=== PATIENT | male | born 1965 | race Caucasian/White ===

== ENCOUNTER → 2016-07-06 | Outpatient (CLI) | payer OTHER | LOC: OD 11:51 | DX: M54.2 Cervicalgia (principal); M47.892 Other spondylosis, cervical region | CPT/HCPCS: 72050 ==

== ENCOUNTER 2016-08-31 05:10 | Inpatient (IN) | payer OTHER ==
[2016-08-31 07:18] LABS: APPEARANCE,URINE CLEAR; BILIRUBIN,URINE NEGATIVE (NEGATIVE); GLUCOSE, URINE NEGATIVE (NEGATIVE); KETONES,URINE NEGATIVE (NEGATIVE); LEUKOCYTE ESTERASE,URINE NEGATIVE (NEGATIVE); NITRITE,URINE NEGATIVE (NEGATIVE); PROTEIN,URINE NEGATIVE (NEGATIVE); URINE SPECIFIC GRAVITY 1.002; UROBILINOGEN,URINE NEGATIVE mg/dL (<2.0)
[2016-08-31] MEDS ORDERED: HYDROMORPHONE HCL INJ/PF 2 MG/ML AMPULE IV ONE (07:42)
[2016-08-31] MEDS ORDERED: ONDANSETRON HCL INJ/PF 4 MG/2 ML SDV IV ONE (07:42)
--- NOTE | 2016-08-31 07:42 | ER Document Report ---
ED GI/ - General Mode of Arrival: Ambulatory Information source: Patient TRAVEL OUTSIDE OF THE [place] IN LAST 30 DAYS: No - HPI Patient complains to provider of: Abdominal pain Onset: Other - see narrative <MARISA LEE - Last Filed: 08/31/16 07:46> <PENNY BHATTI - Last Filed: 08/31/16 12:14> - General Chief Complaint: Abdominal Pain Stated Complaint: ABDOMINAL PAIN/DIZZY Time Seen by Provider: 08/31/16 07:22 Notes: Patient is a 51-year-old male that presents to the emergency department today with complaints of abdominal pain for the last 2-3 weeks. Patient states the pain is constant and that it "just stays there". Patient states there is no change in his pain with food. Patient states he has been dizzy for a couple of days, has been vomiting for 1 week, and has had diarrhea for the duration of this abdominal pain. Patient states the pain is located at the bottom of his stomach. Patient complains of subjective fevers, stating his temperature was in the "99's" at home. Patient does admit to daily alcohol usage, stating he drinks 2-3 40 ounce malt beverages daily. Patient denies seeing any blood in his feces or vomit. Patient is not on any blood thinning medications. (MARISA LEE) - Related Data Allergies/Adverse Reactions: No Known Allergies Allergy (Verified 07/27/14 00:20) Past Medical History - General Information source: Patient, [facility] Records - Social History Smoking Status: Never Smoker Cigarette use (# per day): No Frequency of alcohol use: daily, 2-3 40 oz. beers a day Drug Abuse: None Lives with: Family Family History: Reviewed & Not Pertinent Patient has suicidal ideation: No Patient has homicidal ideation: No - Past Medical History Cardiac Medical History: Reports: Hx Heart Attack, Hx Hypercholesterolemia, Hx Hypertension Neurological Medical History: Reports: Hx Seizures GI Medical History: Reports: Hx Gastroesophageal Reflux Disease Past Surgical History: Reports: Hx Abdominal Surgery - Immunizations Immunizations up to date: Yes Hx Diphtheria, Pertussis, Tetanus Vaccination: Yes <MARISA LEE - Last Filed: 08/31/16 07:46> Review of Systems - Review of Systems Constitutional: See HPI, Fever - subjective, "in the 99's at home" EENT: No symptoms reported Cardiovascular: See HPI, Dizziness Respiratory: No symptoms reported Gastrointestinal: See HPI, Abdominal pain, Diarrhea, Nausea, Vomiting. denies: Blood in vomit, Rectal bleeding Genitourinary: No symptoms reported Male Genitourinary: No symptoms reported Musculoskeletal: No symptoms reported Skin: No symptoms reported Hematologic/Lymphatic: No symptoms reported Neurological/Psychological: No symptoms reported -: Yes All other systems reviewed and negative <MARISA LEE - Last Filed: 08/31/16 07:46> Physical Exam <MARISA LEE - Last Filed: 08/31/16 07:46> <PENNY BHATTI - Last Filed: 08/31/16 12:14> - Vital signs Vitals: Temp Pulse Resp BP Pulse Ox 97.4 F 81 16 133/92 H 97 08/31/16 05:16 08/31/16 05:16 08/31/16 05:16 08/31/16 05:16 08/31/16 05:16 - Notes Notes: PHYSICAL EXAM GENERAL: Alert, interacts well. No acute distress. HEAD: Normocephalic, atraumatic. EYES: Pupils equal, round, and reactive to light. Extraocular movements intact. ENT: Oral mucosa moist, tongue midline. NECK: Full range of motion. Supple. Trachea midline. LUNGS: Clear to auscultation bilaterally, no wheezes, rales, or rhonchi. No respiratory distress. HEART: Regular rate and rhythm. No murmurs, gallops, or rubs. ABDOMEN: Soft, diffuse mild abdominal tenderness with palpation. No guarding, rebound, rigidity, or palpable masses. Non-distended. Bowel sounds present in all 4 quadrants. EXTREMITIES: Moves all 4 extremities spontaneously. No edema. No cyanosis. NEUROLOGICAL: Alert and oriented x3. Normal speech. PSYCH: Normal affect, normal mood. SKIN: Warm, dry, normal turgor. No rashes or lesions noted. (MARISA LEE) Course - Laboratory Result Diagrams: 08/31/16 07:36 08/31/16 07:36 <MARISA LEE - Last Filed: 08/31/16 07:46> - Laboratory Result Diagrams: 08/31/16 07:36 08/31/16 07:36 <PENNY BHATTI - Last Filed: 08/31/16 12:14> - Re-evaluation Re-evalutation: 08/31/16 11:57 Shows mild anemia with hemoglobin 12.1, chemistries show markedly sodium of 121.2 which could certainly account for the dizziness and the vomiting and diarrhea but could also have been caused by vomiting and diarrhea or beer potomania. Is correspondingly low, urinalysis unremarkable, serum alcohol was 285. CT scan of the abdomen and pelvis shows small hiatal hernia and cholelithiasis without any signs of acute obstruction or infection. Discussed patient with Dr. Rhoades the hospitalist on-call who agrees to admit the patient to his service for symptomatic hyponatremia. (PENNY BHATTI) - Vital Signs Vital signs: Temp Pulse Resp BP Pulse Ox 98.2 F 69 16 133/92 H 100 08/31/16 10:23 08/31/16 10:23 08/31/16 10:23 08/31/16 05:16 08/31/16 10:23 - Laboratory Laboratory results interpreted by me: 08/31/16 08/31/16 07:36 07:36 RBC 4.13 L Hgb 12.9 L Hct 37.1 L Sodium 121.2 L Chloride 80 L BUN 5 L Direct Bilirubin 0.6 H AST 76 H Total Protein 8.3 H Discharge <MARISA LEE - Last Filed: 08/31/16 07:46> - Discharge Admitting Provider: Hospitalist - Dr. Rhoades Unit Admitted: Telemetry <PENNY BHATTI - Last Filed: 08/31/16 12:14> - Discharge Clinical Impression: Hyponatremia, Nausea vomiting and diarrhea, Dizziness Condition: Fair Disposition: ADMITTED INPATIENT Scribe Attestation: 08/31/16 12:13 I personally performed the services described in the documentation, reviewed and edited the documentation which was dictated to the scribe in my presence, and it accurately records my words and actions. (PENNY BHATTI) Scribe Documentation - Scribe Written by Ashley:: Ashley Gonzales, 08/31/2016 [id number] acting as scribe for :: Jaz <MARISA LEE - Last Filed: 08/31/16 07:46>
[2016-08-31 07:52] LABS: ABSOLUTE BASOPHILS # (AUTO) 0.1 10^3/uL (0.0-0.2); ABSOLUTE EOSINOPHILS # (AUTO) 0.1 10^3/uL (0.0-0.6); ABSOLUTE LYMPHOCYTES (AUTO) 2.4 10^3/uL (0.5-4.7); ABSOLUTE NEUT (AUTO) 5.4 10^3/uL (1.7-8.2); EOSINOPHILS % (AUTO) 0.7 % (0-6); HEMATOCRIT 37.1 % (37.9-51.0); HEMOGLOBIN 12.9 g/dL (13.5-17.0); HGB HCT DIFFERENCE 1.6; LYMPHOCYTES % (AUTO) 26.4 % (13-45); MEAN CORPUSCULAR HEMOGLOBIN 31.4 pg (27.0-33.4); MEAN CORPUSCULAR HGB CONC 34.8 g/dL (32.0-36.0); MEAN CORPUSCULAR VOLUME 90 fl (80-97); RED BLOOD COUNT 4.13 10^6/uL (4.35-5.55); RED CELL DISTRIBUTION WIDTH 13.2 % (11.5-14.0); SEGMENTED NEUTROPHILS % (AUTO) 60.9 % (42-78)
[2016-08-31 08:09] LABS: ALANINE AMINOTRANSFERASE 40 U/L (21-72); ALBUMIN 4.6 g/dL (3.5-5.0); ALCOHOL 285 mg/dL (NONE DETECTED); ALKALINE PHOSPHATASE 64 U/L (38-126); ANION GAP 14 (5-19); ASPARTATE AMINO TRANSFERASE 76 U/L (17-59); BILIRUBIN,DIRECT 0.6 mg/dL (0.0-0.4); BILIRUBIN,TOTAL 0.8 mg/dL (0.2-1.3); BLOOD UREA NITROGEN 5 mg/dL (7-20); CALCIUM 9.1 mg/dL (8.4-10.2); CARBON DIOXIDE 27 mmol/L (22-30); CHLORIDE 80 mmol/L (98-107); CREATININE RESULT 0.78 mg/dL (0.52-1.25); GLUCOSE 100 mg/dL (75-110); POTASSIUM 4.2 mmol/L (3.6-5.0); SODIUM 121.2 mmol/L (137-145); TOTAL PROTEIN 8.3 g/dL (6.3-8.2)
--- NOTE | 2016-08-31 11:00 | RADIOLOGY REPORT (SQ) ---
EXAM DESCRIPTION: CT ABD/PELVIS WITH IV ORAL COMPLETED DATE/TIME: 08/31/2016 10:36 am REASON FOR STUDY: B/L lower abd pain COMPARISON: None. TECHNIQUE: CT scan of the abdomen and pelvis performed using helical scanning technique with dynamic intravenous contrast injection. Oral contrast. Images reviewed with lung, soft tissue, and bone win dows. Reconstructed coronal and sagittal MPR images reviewed. Delayed images for evaluation of the ur inary system also acquired. All images stored on PACS. All CT scanners at this facility use dose modulation, iterative reconstruction, and/or weight based d osing when appropriate to reduce radiation dose to as low as reasonably achievable (ALARA). [facility]: Dose Right [facility]: CareDose [facility]: Dose Right [facility]: Teradose 4D [facility]: WinWeb CONTRAST TYPE AND DOSE: 62mL Isovue 370- low osmolar. RENAL FUNCTION: BUN 5 creatinine 0.8 RADIATION DOSE: 11.52mGy. LIMITATIONS: None. FINDINGS: LOWER CHEST: There is mild subsegmental atelectasis in the right lower lobe. There is a s mall hiatal hernia. LIVER: Normal size. No masses or dilated ducts. SPLEEN: Normal size. No focal lesions. PANCREAS: No masses. No significant calcifications. No adjacent inflammation or peripancreatic fluid collections. Pancreatic duct not dilated. GALLBLADDER: Several small gallstones are present. There is no ductal dilatation. ADRENAL GLANDS: No significant masses or asymmetry. RIGHT KIDNEY AND URETER: No solid masses. No significant calcifications. No hydronephrosis or hyd roureter. LEFT KIDNEY AND URETER: No solid masses. No significant calcifications. No hydronephrosis or hydr oureter. AORTA AND VESSELS: No aneurysm. No dissection. Renal arteries, SMA, celiac without stenosis. RETROPERITONEUM: No retroperitoneal adenopathy, hemorrhage or masses. BOWEL AND PERITONEAL CAVITY: No masses or inflammatory changes. No free fluid or peritoneal masses. APPENDIX: Normal. PELVIS: The bladder is normal. Prostate gland and seminal vesicles are normal. ABDOMINAL WALL: No masses. No hernias. BONES: There is mild disc space narrowing at L1-2 and at L4-5. OTHER: No other significant finding. IMPRESSION: 1. Small hiatal hernia. 2. Cholelithiasis. 3. Mild degenerative disc changes in the lumbar spine. TECHNICAL DOCUMENTATION: JOB ID: [id number] Quality ID # [id number]: Final reports with documentation of one or more dose reduction techniques (e.g., Au tomated exposure control, adjustment of the mA and/or kV according to patient size, use of iterative reconstruction technique) 2010 [employer]- All Rights Reserved
[2016-08-31] MEDS ORDERED: ONDANSETRON HCL INJ/PF 4 MG/2 ML SDV IV PRN (13:56)
[2016-08-31] MEDS ORDERED: NORMAL SALINE 1000 ML 1,000 ML IV PRN (13:56)
[2016-08-31] MEDS ORDERED: ACETAMINOPHEN 325 MG TABLET PO PRN (13:56)
[2016-08-31] MEDS ORDERED: LORAZEPAM INJ 2 MG/1 ML VIAL IV PRN (14:03)
--- NOTE | 2016-08-31 14:16 | PDOC H&P ---
History of Present Illness Admission Date/PCP: 08/31/16 12:17 Patient complains of: Abdominal pain nausea and vomiting History of Present Illness: ROSAMARIA JAMES is a 51 year old male, with history of alcohol abuse hypertension hyperlipidemia and gastroesophageal reflux disease has been dealing with nausea vomiting and abdominal pain for 2 weeks. For the past 2-3 days he started to feel dizzy and unable to eat. Patient progressively got weak and presented to the emergency room for evaluation. No one sick with diarrhea at home. No exposure to person with diarrhea. No recent antibiotic intake. The diarrhea is occurring 10-12 times per day and is mainly watery. No melena hematochezia or hematemesis. No recent travel. There is a subjective fever but no sweating. Abdominal pain is characterized as crampy and generalized. He has no particular relation to food intake. In the emergency room serum sodium was found to be low at 121 therefore she was referred for admission. Past Medical History Cardiac Medical History: Reports: Myocardial Infarction, Hyperlipidema, Hypertension Neurological Medical History: Reports: Seizures GI Medical History: Reports: Gastroesophageal Reflux Disease Past Surgical History Past Surgical History: Reports: Other - Abdominal surgery in the past Social History Information Source: Patient Lives with: Family Smoking Status: Never Smoker Frequency of Alcohol Use: Heavy Hx Recreational Drug Use: No Drugs: None Family History Family History: Other - Heart disease and stroke Parental Family History Reviewed: Yes Children Family History Reviewed: Yes Sibling(s) Family History Reviewed.: Yes Medication/Allergy Allergies/Adverse Reactions: No Known Allergies Allergy (Verified 07/27/14 00:20) Review of Systems Constitutional: PRESENT: fever(s) - Subjective fever at home, headache(s) - Mild earlier. ABSENT: chills, night sweats, weight gain, weight loss Eyes: ABSENT: visual disturbances Ears: ABSENT: hearing changes Nose, Mouth, and Throat: ABSENT: mouth pain, sore throat Cardiovascular: ABSENT: chest pain, dyspnea on exertion, edema, orthropnea, palpitations Respiratory: ABSENT: cough, dyspnea, hemoptysis Gastrointestinal: PRESENT: abdominal pain, diarrhea, nausea, vomiting. ABSENT: constipation, hematemesis, hematochezia, melena Genitourinary: ABSENT: difficulty urinating, dysuria, hematuria, nocturia Musculoskeletal: ABSENT: joint swelling Integumentary: ABSENT: pruritus, rash, wounds Neurological: PRESENT: dizziness. ABSENT: abnormal gait, abnormal speech, confusion, focal weakness, syncope Psychiatric: ABSENT: anxiety, depression, homidical ideation, suicidal ideation Endocrine: ABSENT: cold intolerance, heat intolerance, polydipsia, polyuria Hematologic/Lymphatic: ABSENT: easy bleeding, easy bruising Physical Exam Vital Signs: Temp Pulse Resp BP Pulse Ox 97.5 F 102 H 16 134/95 H 97 08/31/16 12:31 08/31/16 12:31 08/31/16 12:31 08/31/16 12:31 08/31/16 12:31 General appearance: PRESENT: no acute distress, well-developed, well-nourished Head exam: PRESENT: atraumatic, normocephalic Eye exam: PRESENT: conjunctiva pink, EOMI, PERRLA. ABSENT: scleral icterus Ear exam: PRESENT: normal external ear exam Mouth exam: PRESENT: moist, neck supple, tongue midline Throat exam: ABSENT: post pharyngeal erythema, tonsillar erythema, tonsillar exudate Neck exam: ABSENT: carotid bruit, JVD, lymphadenopathy, thyromegaly Respiratory exam: PRESENT: clear to auscultation mike. ABSENT: rales, rhonchi, wheezes Cardiovascular exam: PRESENT: RRR. ABSENT: diastolic murmur, rubs, systolic murmur Pulses: PRESENT: normal dorsalis pedis pul Vascular exam: PRESENT: normal capillary refill GI/Abdominal exam: PRESENT: hyperactive bowel sounds, soft, tenderness - Minimal on the upper quadrants and periumbilical. ABSENT: distended, guarding, mass, organolmegaly, rebound Rectal exam: PRESENT: deferred Extremities exam: PRESENT: full ROM. ABSENT: calf tenderness, clubbing, pedal edema Neurological exam: PRESENT: alert, awake, oriented to person, oriented to place , oriented to time, oriented to situation, CN II-XII grossly intact. ABSENT: motor sensory deficit Psychiatric exam: PRESENT: appropriate affect, normal mood. ABSENT: homicidal ideation, suicidal ideation Skin exam: PRESENT: dry, intact, warm. ABSENT: cyanosis, rash Results Impressions: Abdomen/Pelvis CT 08/31/16 07:42 IMPRESSION: 1. Small hiatal hernia. 2. Cholelithiasis. 3. Mild degenerative disc changes in the lumbar spine. Assessment & Plan - Diagnosis (1) Dizziness Is this a current diagnosis for this admission?: Yes (2) Hyponatremia Is this a current diagnosis for this admission?: Yes (3) Nausea vomiting and diarrhea Is this a current diagnosis for this admission?: Yes (4) Cholelithiasis Qualifiers: Cholelithiasis location: gallbladder Cholecystitis presence: without cholecystitis Biliary obstruction: without biliary obstruction Qualified Code(s): K80.20 - Calculus of gallbladder without cholecystitis without obstruction Is this a current diagnosis for this admission?: Yes (5) Hiatal hernia Is this a current diagnosis for this admission?: Yes (6) GERD (gastroesophageal reflux disease) Qualifiers: Esophagitis presence: without esophagitis Qualified Code(s): K21.9 - Gastro-esophageal reflux disease without esophagitis Is this a current diagnosis for this admission?: Yes (7) Seizure disorder Is this a current diagnosis for this admission?: Yes (8) Essential hypertension Is this a current diagnosis for this admission?: Yes (9) Hyperlipidemia Qualifiers: Hyperlipidemia type: unspecified Qualified Code(s): E78.5 - Hyperlipidemia, unspecified Is this a current diagnosis for this admission?: Yes - Time Time Spent: 50 to 70 Minutes - Inpatient Certification Based on my medical assessment, after consideration of the patient's comorbidities, presenting symptoms, or acuity I expect that the services needed warrant INPATIENT care.: Yes I certify that my determination is in accordance with my understanding of Medicare's requirements for reasonable and necessary INPATIENT services [42 CFR 412.3e].: Yes Medical Necessity: Need Close Monitoring Due to Risk of Patient Decompensation, Need For IV Fluids, Need for Pain Control, Risk of Complication if Not Cared For in Hospital - Plan Summary Plan Summary: The patient will be admitted to telemetry. We will hydrate the patient with normal saline. We will give intravenous thiamine and folic acid and multivitamin. In the meantime we will will check stool for Clostridium difficile toxin, stool culture and begin antibiotic with ciprofloxacin and Flagyl for possible colitis. We will give as needed Ativan if withdrawal symptoms occur. DVT prophylaxis with Lovenox will be placed. We will monitor serum sodium. Further testing depends on the initial evaluations outlined above.
[2016-08-31] MEDS ORDERED: ENOXAPARIN SODIUM INJ 40 MG/0.4 ML DISP.SYRIN SUBCUT ONE (15:00)
[2016-08-31] MEDS: METRONIDAZOLE 500 MG/NS RTU 100 ML IV SCH ×2 (15:07→21:17)
[2016-08-31] MEDS: NORMAL SALINE 1000 ML 1,000 ML with THIAMINE HCL 100 MG, MVI, ADULT NO.1 WITH VIT K 10 ... IV PRN ×4 (15:43)
[2016-08-31] MEDS: LANSOPRAZOLE 30 MG TAB.RAP.DR PO SCH (16:33)
[2016-08-31 20:23] LABS: ANION GAP 11 (5-19); BLOOD UREA NITROGEN 4 mg/dL (7-20); CALCIUM 8.2 mg/dL (8.4-10.2); CARBON DIOXIDE 26 mmol/L (22-30); CHLORIDE 87 mmol/L (98-107); CREATININE RESULT 0.77 mg/dL (0.52-1.25); GLUCOSE 87 mg/dL (75-110); POTASSIUM 3.7 mmol/L (3.6-5.0); SODIUM 123.5 mmol/L (137-145)
[2016-08-31 20:35] LABS: MAGNESIUM 1.2 mg/dL (1.6-2.3)
[2016-08-31] MEDS: MAGNESIUM SULFATE/D5W 100 ML IV SCH (22:56)
[2016-09-01] MEDS: MAGNESIUM SULFATE/D5W 100 ML IV SCH (00:04)
--- NOTE | 2016-09-01 00:21 | EKG REPORT ---
SEVERITY:- ABNORMAL ECG - SINUS RHYTHM FIRST DEGREE AV BLOCK : Confirmed by: Lino Lynn 01-Sep-2016 00:21:03
[2016-09-01] MEDS ORDERED: MAGNESIUM SULFATE/D5W 1 GM/100 ML RTUPB IV SCH (01:30)
[2016-09-01] MEDS: METRONIDAZOLE 500 MG/NS RTU 100 ML IV SCH ×4 (03:24→21:02)
[2016-09-01] MEDS: CIPROFLOXACIN 400 MG/D5W RTU 200 ML IV SCH ×2 (04:27→11:32)
[2016-09-01] MEDS: LANSOPRAZOLE 30 MG TAB.RAP.DR PO SCH ×2 (05:44→18:49)
[2016-09-01 06:44] LABS: HEMATOCRIT 33.7 % (37.9-51.0); HEMOGLOBIN 11.5 g/dL (13.5-17.0); HGB HCT DIFFERENCE 0.8; MEAN CORPUSCULAR HEMOGLOBIN 30.8 pg (27.0-33.4); MEAN CORPUSCULAR HGB CONC 34.2 g/dL (32.0-36.0); MEAN CORPUSCULAR VOLUME 90 fl (80-97); RED BLOOD COUNT 3.74 10^6/uL (4.35-5.55); RED CELL DISTRIBUTION WIDTH 13.6 % (11.5-14.0); WHITE BLOOD COUNT 6.7 10^3/uL (4.0-10.5)
[2016-09-01 06:54] LABS: ANION GAP 7 (5-19); BLOOD UREA NITROGEN 3 mg/dL (7-20); CALCIUM 8.6 mg/dL (8.4-10.2); CARBON DIOXIDE 30 mmol/L (22-30); CHLORIDE 92 mmol/L (98-107); GLUCOSE 89 mg/dL (75-110); PHOSPHORUS 3.1 mg/dL (2.5-4.5); POTASSIUM 3.9 mmol/L (3.6-5.0); SODIUM 129.3 mmol/L (137-145)
[2016-09-01 07:12] LABS: MAGNESIUM 2.3 mg/dL (1.6-2.3)
[2016-09-01] MEDS: NORMAL SALINE 1000 ML 1,000 ML IV PRN (08:18)
--- NOTE | 2016-09-01 08:18 | PDOC PROGRESS REPORT ---
Subjective Progress Note for:: 09/01/16 Subjective:: Patient is feeling better this morning. Diarrhea is less but started to develop more cough. No shortness of breath chills nor fever. No melena hematochezia or hematemesis. No reported withdrawal symptoms or tremors. No agitation as well. Physical Exam Vital Signs: Temp Pulse Resp BP Pulse Ox 97.9 F 82 16 131/94 H 95 09/01/16 07:09 09/01/16 07:09 09/01/16 07:09 09/01/16 07:09 09/01/16 07:09 Intake & Output 08/31/16 09/01/16 09/02/16 06:59 06:59 06:59 Intake Total 2910 Output Total 1600 Balance 1310 Weight 65.8 kg General appearance: PRESENT: no acute distress, cooperative Head exam: PRESENT: normocephalic Eye exam: PRESENT: EOMI Mouth exam: PRESENT: moist, neck supple Neck exam: ABSENT: JVD Respiratory exam: PRESENT: clear to auscultation mike - anteriorly. ABSENT: rhonchi, wheezes Cardiovascular exam: PRESENT: RRR. ABSENT: gallop GI/Abdominal exam: PRESENT: hyperactive bowel sounds, soft. ABSENT: distended Extremities exam: ABSENT: pedal edema Neurological exam: PRESENT: alert, awake, oriented to situation Psychiatric exam: PRESENT: other - no tremors Skin exam: PRESENT: dry, warm. ABSENT: cyanosis Results Laboratory Results: 09/01/16 05:46 09/01/16 05:46 08/31/16 09/01/16 09/01/16 19:56 05:46 05:46 WBC 6.7 RBC 3.74 L Hgb 11.5 L Hct 33.7 L MCV 90 MCH 30.8 MCHC 34.2 RDW 13.6 Plt Count 217 Sodium 123.5 L 129.3 L Potassium 3.7 3.9 Chloride 87 L 92 L Carbon Dioxide 26 30 Anion Gap 11 7 BUN 4 L 3 L Creatinine 0.77 0.80 Est GFR ( Amer) > 60 > 60 Est GFR (Non-Af Amer) > 60 > 60 Glucose 87 89 Calcium 8.2 L 8.6 Phosphorus 3.1 Magnesium 1.2 L* 2.3 D Impressions: Abdomen/Pelvis CT 08/31/16 07:42 IMPRESSION: 1. Small hiatal hernia. 2. Cholelithiasis. 3. Mild degenerative disc changes in the lumbar spine. Assessment & Plan - Diagnosis (1) Dizziness Is this a current diagnosis for this admission?: Yes (2) Hyponatremia Is this a current diagnosis for this admission?: Yes (3) Nausea vomiting and diarrhea Is this a current diagnosis for this admission?: Yes (4) Cholelithiasis Qualifiers: Cholelithiasis location: gallbladder Cholecystitis presence: without cholecystitis Biliary obstruction: without biliary obstruction Qualified Code(s): K80.20 - Calculus of gallbladder without cholecystitis without obstruction Is this a current diagnosis for this admission?: Yes (5) Hiatal hernia Is this a current diagnosis for this admission?: Yes (6) GERD (gastroesophageal reflux disease) Qualifiers: Esophagitis presence: without esophagitis Qualified Code(s): K21.9 - Gastro-esophageal reflux disease without esophagitis Is this a current diagnosis for this admission?: Yes (7) Seizure disorder Is this a current diagnosis for this admission?: Yes (8) Essential hypertension Is this a current diagnosis for this admission?: Yes (9) Hyperlipidemia Qualifiers: Hyperlipidemia type: unspecified Qualified Code(s): E78.5 - Hyperlipidemia, unspecified Is this a current diagnosis for this admission?: Yes - Time Time Spent with patient: 25-34 minutes - Plan Summary Plan Summary: Continue IV hydration. We will continue current antibiotics. Obtain a chest x- ray. Antibiotics will likely cover aspiration if present as well. I will resume her home Depakote but continue to hold ARB due to hyponatremia. We will try to advance his diet today. If he continues to improve may be able to be discharged in the morning.
[2016-09-01] MEDS: ENOXAPARIN SODIUM INJ 40 MG/0.4 ML DISP.SYRIN SUBCUT SCH (08:24)
[2016-09-01] MEDS: AMLODIPINE BESYLATE 5 MG TABLET PO SCH (11:32)
[2016-09-01] MEDS: DIVALPROEX SODIUM 250 MG TAB.SR.24H PO SCH ×2 (11:32→18:49)
--- NOTE | 2016-09-01 11:45 | RADIOLOGY REPORT (SQ) ---
EXAM DESCRIPTION: CHEST SINGLE VIEW COMPLETED DATE/TIME: 09/01/2016 11:35 am REASON FOR STUDY: Cough COMPARISON: 01/10/2016. EXAM PARAMETERS: NUMBER OF VIEWS: One view. TECHNIQUE: Single frontal radiographic view of the chest acquired. RADIATION DOSE: NA LIMITATIONS: None. FINDINGS: LUNGS AND PLEURA: No opacities, masses or pneumothorax. No pleural effusion. MEDIASTINUM AND HILAR STRUCTURES: No masses. Contour normal. HEART AND VASCULAR STRUCTURES: Heart normal in size. Normal vasculature. BONES: No acute findings. HARDWARE: None in the chest. OTHER: No other significant finding. IMPRESSION: NO ACUTE RADIOGRAPHIC FINDING IN THE CHEST. TECHNICAL DOCUMENTATION: JOB ID: [id number]
[2016-09-01] MEDS: NORMAL SALINE 1000 ML 1,000 ML with THIAMINE HCL 100 MG, MVI, ADULT NO.1 WITH VIT K 10 ... IV PRN ×4 (21:02)
[2016-09-02] MEDS: CIPROFLOXACIN 400 MG/D5W RTU 200 ML IV SCH (03:46)
[2016-09-02] MEDS: METRONIDAZOLE 500 MG/NS RTU 100 ML IV SCH (03:51)
[2016-09-02 06:23] LABS: ANION GAP 12 (5-19); BLOOD UREA NITROGEN 4 mg/dL (7-20); CALCIUM 8.5 mg/dL (8.4-10.2); CARBON DIOXIDE 26 mmol/L (22-30); CHLORIDE 95 mmol/L (98-107); GLUCOSE 89 mg/dL (75-110); POTASSIUM 3.3 mmol/L (3.6-5.0); SODIUM 132.5 mmol/L (137-145)
[2016-09-02] MEDS: LANSOPRAZOLE 30 MG TAB.RAP.DR PO SCH (06:43)
[2016-09-02] MEDS: AMLODIPINE BESYLATE 5 MG TABLET PO SCH (09:06)
[2016-09-02] MEDS: DIVALPROEX SODIUM 250 MG TAB.SR.24H PO SCH (09:06)
[2016-09-02] MEDS: ENOXAPARIN SODIUM INJ 40 MG/0.4 ML DISP.SYRIN SUBCUT SCH (09:07)
[2016-09-02] MEDS ORDERED: ONDANSETRON HCL INJ/PF 4 MG/2 ML SDV IV PRN (09:52)
[2016-09-02] MEDS: NORMAL SALINE 1000 ML 1,000 ML IV PRN (09:59)
[2016-09-02] MEDS ORDERED: CIPROFLOXACIN HCL 500 MG TABLET PO SCH (10:00)
[2016-09-02 10:25] VITALS: BP 131/93
[2016-09-02] MEDS ORDERED: POTASSIUM CHLORIDE 10 MEQ TABLET.SA PO ONE (11:10)
--- NOTE | 2016-09-02 11:23 | PDOC DISCHARGE SUMMARY ---
General - Admit/Disc Date/PCP Admission Date/Primary Care Provider: 08/31/16 13:56 Discharge Date: 09/02/16 - Discharge Diagnosis (1) Hyponatremia Is this a current diagnosis for this admission?: Yes (4) Cholelithiasis Is this a current diagnosis for this admission?: Yes (5) Hiatal hernia Is this a current diagnosis for this admission?: Yes (6) GERD (gastroesophageal reflux disease) Is this a current diagnosis for this admission?: Yes (7) Seizure disorder Is this a current diagnosis for this admission?: Yes (8) Essential hypertension Is this a current diagnosis for this admission?: Yes (9) Hyperlipidemia Is this a current diagnosis for this admission?: Yes - Additional Information Discharge Diet: Cardiac - Low-fat low-salt Discharge Activity: Activity As Tolerated, Balance Activity w/Rest Home Medications: Acetaminophen [Tylenol] 650 mg PO Q8PM PRN 08/31/16 Atorvastatin Calcium [Lipitor 40 mg Tablet] 40 mg PO WSUPPER 08/31/16 Cetirizine HCl [Zyrtec] 10 mg PO DAILY 08/31/16 Divalproex Sodium [Depakote ER 250 mg Tablet] 250 mg PO BID 08/31/16 Losartan Potassium 50 mg PO DAILY 08/31/16 Omeprazole 40 mg PO DAILY 08/31/16 Benzonatate [Tessalon Perle 100 mg Capsule] 200 mg PO Q8HP PRN #40 cap 09/02/16 Ciprofloxacin HCl [Cipro 500 mg Tablet] 500 mg PO Q12 #14 tablet 09/02/16 Folic Acid 1 mg PO DAILY #30 tablet 09/02/16 Metronidazole [Flagyl 500 mg Tablet] 500 mg PO Q6 #28 tablet 09/02/16 Multivitamin [Daily Multiple Vitamin] 1 each PO DAILY #30 tablet 09/02/16 Thiamine HCl [Thiamine 100 mg Tablet] 100 mg PO DAILY #30 tablet 09/02/16 Additional Information: 1. Stop alcohol. 2. Check potassium level as outpatient with primary care physician in 1 week. 3. Return to the emergency room if abdominal pain recurs with nausea and vomiting or yellowish discoloration of the skin and eyes or tea colored urine. History of Present Illness Patient complains of: Abdominal pain nausea and vomiting History of Present Illness: ROSAMARIA JAMES is a 51 year old male, with history of alcohol abuse hypertension hyperlipidemia and gastroesophageal reflux disease has been dealing with nausea vomiting and abdominal pain for 2 weeks. For the past 2-3 days he started to feel dizzy and unable to eat. Patient progressively got weak and presented to the emergency room for evaluation. No one sick with diarrhea at home. No exposure to person with diarrhea. No recent antibiotic intake. The diarrhea is occurring 10-12 times per day and is mainly watery. No melena hematochezia or hematemesis. No recent travel. There is a subjective fever but no sweating. Abdominal pain is characterized as crampy and generalized. He has no particular relation to food intake. In the emergency room serum sodium was found to be low at 121 therefore she was referred for admission. Hospital Course Hospital Course: The patient was admitted to telemetry. The patient was placed on liquid diet. Intravenous fluid was instituted. Intravenous antibiotic was started to cover for colitis. Supplemental thiamine and folic acid and multivitamin were likewise given. The patient was monitored for withdrawal but no withdrawal symptoms were noted. With hydration the patient's serum sodium subsequently improved. Electrolytes were monitored and they were replaced. Patient symptoms of nausea and vomiting likewise improved after 24-48 hours. Patient's diet was advanced and tolerated it well. He has diarrhea significantly improved as well. Clostridium difficile toxin was negative. Culture was likewise negative. Patient may have nonspecific colitis and responded to the antibiotics. Patient will therefore continue with for another week and follow- up with primary care physician. Patient wanting to continue treatment on an outpatient basis. Course was noted for cough likely related to bronchitis. Chest x-ray did not reveal any acute infiltrate. This should improve with antibiotic as well with time. The rest of the hospital stay is unremarkable. Physical Exam Vital Signs: Temp Pulse Resp BP Pulse Ox 98 F 76 19 131/93 H 100 09/02/16 10:53 09/02/16 10:53 09/02/16 10:53 09/02/16 10:53 09/02/16 10:53 Intake & Output 09/01/16 09/02/16 09/03/16 06:59 06:59 06:59 Intake Total 2910 3920 Output Total 1600 1750 Balance 1310 2170 Weight 65.8 kg 66.8 kg General appearance: PRESENT: no acute distress, cooperative Head exam: PRESENT: normocephalic Eye exam: PRESENT: EOMI Mouth exam: PRESENT: moist, neck supple Neck exam: ABSENT: JVD Respiratory exam: PRESENT: clear to auscultation mike. ABSENT: rhonchi, wheezes Cardiovascular exam: PRESENT: RRR. ABSENT: gallop GI/Abdominal exam: PRESENT: hyperactive bowel sounds, soft. ABSENT: distended, tenderness Extremities exam: ABSENT: pedal edema Neurological exam: PRESENT: alert, awake, oriented to person, oriented to place , oriented to time, oriented to situation Skin exam: PRESENT: dry, warm. ABSENT: cyanosis Results Laboratory Results: 09/01/16 05:46 09/02/16 05:08 09/02/16 05:08 Sodium 132.5 L Potassium 3.3 L Chloride 95 L Carbon Dioxide 26 Anion Gap 12 BUN 4 L Creatinine 0.80 Est GFR ( Amer) > 60 Est GFR (Non-Af Amer) > 60 Glucose 89 Calcium 8.5 08/31/16 18:40 Stool - Stool - Final 08/31/16 18:40 Stool - Stool Stool Culture - Final NO SALMONELLA, SHIGELLA, CAMPYLOBACTER, OR E.COLI 0157 RECOVERED. NEGATIVE FOR SHIGA TOXINS 1&2. Impressions: Abdomen/Pelvis CT 08/31/16 07:42 IMPRESSION: 1. Small hiatal hernia. 2. Cholelithiasis. 3. Mild degenerative disc changes in the lumbar spine. Chest X-Ray 09/01/16 00:00 IMPRESSION: NO ACUTE RADIOGRAPHIC FINDING IN THE CHEST. Qualifiers PATEINT BEING DISCHARGED WITH ANY OF THE FOLLOWING DIAGNOSIS?: No Plan Discharge Plan: [facility] Time Spent: Less than 30 Minutes
[2016-09-02] MEDS ORDERED: METRONIDAZOLE 500 MG TABLET PO SCH (12:00)
== END 2016-09-02 12:10 | disposition home or self-care (01) | DRG 641 ==
LOC: ER 05:10 → EH 12:17 → UNDOADMIN 12:17 → EH 13:56 → 5 14:12
DX: E87.1 Hypo-osmolality and hyponatremia (principal); K80.20 Calculus of gallbladder without cholecystitis without obstruction; K44.9 Diaphragmatic hernia without obstruction or gangrene; K21.9 Gastro-esophageal reflux disease without esophagitis; G40.909 Epilepsy, unspecified, not intractable, without status epilepticus; I10 Essential (primary) hypertension; E78.5 Hyperlipidemia, unspecified; K52.9 Noninfective gastroenteritis and colitis, unspecified; M51.36 Other intervertebral disc degeneration, lumbar region; E78.00 Pure hypercholesterolemia, unspecified; D64.9 Anemia, unspecified; I25.2 Old myocardial infarction; Z79.899 Other long term (current) drug therapy; Z82.3 Family history of stroke; Z82.49 Family history of ischemic heart disease and other diseases of the circulatory system
CPT/HCPCS: 36415; 71010; 74177; 80048; 80053; 80307; 81001; 83690; 83735; 84100; 84443; 85025; 85027; 87045; 87205; 87493; 93005; 93010; 96374; 96375; 99285; J0744; J1170; J1650; J2405; J3411; J3475; J3490; J7030

== ENCOUNTER → 2016-09-14 | Outpatient (CLI) | payer OTHER ==
[2016-09-14 13:58] LABS: ABSOLUTE BASOPHILS # (AUTO) 0.2 10^3/uL (0.0-0.2); ABSOLUTE LYMPHOCYTES (AUTO) 1.7 10^3/uL (0.5-4.7); ABSOLUTE MONOCYTES (AUTO) 0.9 10^3/uL (0.1-1.4); ABSOLUTE NEUT (AUTO) 6.9 10^3/uL (1.7-8.2); BASOPHILS % (AUTO) 1.9 % (0-2); EOSINOPHILS % (AUTO) 0.3 % (0-6); HEMATOCRIT 39.8 % (37.9-51.0); HEMOGLOBIN 13.4 g/dL (13.5-17.0); HGB HCT DIFFERENCE 0.4; LYMPHOCYTES % (AUTO) 17.2 % (13-45); MEAN CORPUSCULAR HEMOGLOBIN 31.4 pg (27.0-33.4); MEAN CORPUSCULAR HGB CONC 33.6 g/dL (32.0-36.0); MEAN CORPUSCULAR VOLUME 93 fl (80-97); MONOCYTES % (AUTO) 9.6 % (3-13); RED BLOOD COUNT 4.26 10^6/uL (4.35-5.55); RED CELL DISTRIBUTION WIDTH 14.7 % (11.5-14.0); WHITE BLOOD COUNT 9.8 10^3/uL (4.0-10.5)
[2016-09-14 14:26] LABS: ANION GAP 15 (5-19); BLOOD UREA NITROGEN 8 mg/dL (7-20); CALCIUM 9.3 mg/dL (8.4-10.2); CARBON DIOXIDE 26 mmol/L (22-30); CHLORIDE 98 mmol/L (98-107); CREATININE RESULT 1.19 mg/dL (0.52-1.25); GLUCOSE 87 mg/dL (75-110); POTASSIUM 4.5 mmol/L (3.6-5.0); SODIUM 139.2 mmol/L (137-145)
== END ==
LOC: CCC 12:48
DX: R19.7 Diarrhea, unspecified (principal); D64.9 Anemia, unspecified
CPT/HCPCS: 36415; 80048; 84443; 85025

== ENCOUNTER → 2016-09-29 | Outpatient (CLI) | payer OTHER | LOC: CCC 12:52 | DX: R19.7 Diarrhea, unspecified (principal) | CPT/HCPCS: 36415; 85652; 86140; 87045; 87177; 87205; 87493; 89055 ==

== ENCOUNTER 2016-10-25 17:42 | Emergency (ER) | payer OTHER ==
--- NOTE | 2016-10-25 18:26 | ER Document Report ---
ED Medical Screen (RME) - General Chief Complaint: Chest Pain Stated Complaint: CHEST PAIN Time Seen by Provider: 10/25/16 18:24 Mode of Arrival: Ambulatory Information source: Patient TRAVEL OUTSIDE OF THE [place] IN LAST 30 DAYS: No - HPI Patient complains to provider of: cp Onset: Other - pt has been having cp intermttent for "years: but has been getting wores over the pasts few days. Took ASA earlier - Related Data Allergies/Adverse Reactions: No Known Allergies Allergy (Verified 10/25/16 17:53) Past Medical History - Social History Chew tobacco use (# tins/day): No Frequency of alcohol use: Heavy Drug Abuse: None - Past Medical History Cardiac Medical History: Reports: Hx Heart Attack, Hx Hypercholesterolemia, Hx Hypertension Neurological Medical History: Reports: Hx Seizures Renal/ Medical History: Denies: Hx Peritoneal Dialysis GI Medical History: Reports: Hx Gastroesophageal Reflux Disease Past Surgical History: Reports: Hx Abdominal Surgery, Other - Abdominal surgery in the past - Immunizations Immunizations up to date: Yes Hx Diphtheria, Pertussis, Tetanus Vaccination: No Physical Exam - Vital signs Vitals: Temp Pulse Resp BP Pulse Ox 97.8 F 104 H 16 119/88 H 97 10/25/16 17:57 10/25/16 17:57 10/25/16 17:57 10/25/16 17:57 10/25/16 17:57 Course - Vital Signs Vital signs: Temp Pulse Resp BP Pulse Ox 97.8 F 104 H 16 119/88 H 97 10/25/16 17:57 10/25/16 17:57 10/25/16 17:57 10/25/16 17:57 10/25/16 17:57
--- NOTE | 2016-10-25 18:48 | RADIOLOGY REPORT (SQ) ---
EXAM DESCRIPTION: CHEST PA/LAT COMPLETED DATE/TIME: 10/25/2016 6:36 pm REASON FOR STUDY: cp COMPARISON: 01/10/2016 EXAM PARAMETERS: NUMBER OF VIEWS: two views TECHNIQUE: Digital Frontal and Lateral radiographic views of the chest acquired. RADIATION DOSE: NA LIMITATIONS: none FINDINGS: LUNGS AND PLEURA: No opacities, masses or pneumothorax. No pleural effusion. MEDIASTINUM AND HILAR STRUCTURES: No masses or contour abnormalities. HEART AND VASCULAR STRUCTURES: Heart normal size. No evidence for failure. BONES: No acute findings. HARDWARE: None in the chest. OTHER: No other significant finding. IMPRESSION: NO SIGNIFICANT RADIOGRAPHIC FINDING IN THE CHEST. TECHNICAL DOCUMENTATION: JOB ID: [id number] [employer]- All Rights Reserved
[2016-10-25 18:52] LABS: ABSOLUTE EOSINOPHILS # (AUTO) 0.1 10^3/uL (0.0-0.6); ABSOLUTE LYMPHOCYTES (AUTO) 1.6 10^3/uL (0.5-4.7); ABSOLUTE MONOCYTES (AUTO) 0.6 10^3/uL (0.1-1.4); ABSOLUTE NEUT (AUTO) 3.5 10^3/uL (1.7-8.2); BASOPHILS % (AUTO) 0.8 % (0-2); EOSINOPHILS % (AUTO) 0.9 % (0-6); HEMATOCRIT 41.3 % (37.9-51.0); HEMOGLOBIN 14.2 g/dL (13.5-17.0); HGB HCT DIFFERENCE 1.3; LYMPHOCYTES % (AUTO) 27.3 % (13-45); MEAN CORPUSCULAR HEMOGLOBIN 32.7 pg (27.0-33.4); MEAN CORPUSCULAR HGB CONC 34.4 g/dL (32.0-36.0); MEAN CORPUSCULAR VOLUME 95 fl (80-97); MONOCYTES % (AUTO) 10.5 % (3-13); RED BLOOD COUNT 4.35 10^6/uL (4.35-5.55); SEGMENTED NEUTROPHILS % (AUTO) 60.5 % (42-78); WHITE BLOOD COUNT 5.8 10^3/uL (4.0-10.5)
[2016-10-25 19:09] LABS: ALANINE AMINOTRANSFERASE 43 U/L (21-72); ALBUMIN 4.5 g/dL (3.5-5.0); ALKALINE PHOSPHATASE 74 U/L (38-126); ANION GAP 16 (5-19); ASPARTATE AMINO TRANSFERASE 57 U/L (17-59); BILIRUBIN,DIRECT 0.3 mg/dL (0.0-0.4); BILIRUBIN,TOTAL 0.4 mg/dL (0.2-1.3); BLOOD UREA NITROGEN 4 mg/dL (7-20); CARBON DIOXIDE 23 mmol/L (22-30); CHLORIDE 97 mmol/L (98-107); CREATINE KINASE 474 U/L (55-170); CREATININE RESULT 0.75 mg/dL (0.52-1.25); GLUCOSE 118 mg/dL (75-110); POTASSIUM 4.5 mmol/L (3.6-5.0); TOTAL PROTEIN 8.4 g/dL (6.3-8.2)
[2016-10-25 19:21] LABS: TROPONIN I < 0.012 ng/mL
[2016-10-25] MEDS ORDERED: ONDANSETRON 4 MG TAB.RAPDIS PO ONE (19:45)
[2016-10-25] MEDS ORDERED: ASPIRIN 81 MG TABLET, CHEWABLE PO ONE (19:45)
[2016-10-25] MEDS ORDERED: FAMOTIDINE 20 MG TABLET PO ONE (19:45)
[2016-10-25] MEDS ORDERED: NORMAL SALINE 1000 ML 1,000 ML IV ONE (19:47)
--- NOTE | 2016-10-25 19:48 | ER Document Report ---
ED General - General Chief Complaint: Chest Pain Stated Complaint: CHEST PAIN Time Seen by Provider: 10/25/16 18:24 Mode of Arrival: Ambulatory Notes: Patient is a 51-year-old male who comes emergency department for chief complaint of "chest pain", he states that he feels pain underneath his left breast, this is intermittent, he also states that he has vomited 6-7 times today. He also complains of generalized abdominal pain. Patient states he gets this pain frequently and has had it for months but is worse today with vomiting. Patient drinks alcohol daily, he does take omeprazole, he has had endoscopy last year which showed gastritis but no other abnormalities per patient. Other past medical history of hypertension, hyperlipidemia. He denies smoking. He does have family history of IA, denies personal cardiac history. TRAVEL OUTSIDE OF THE [place] IN LAST 30 DAYS: No - Related Data Allergies/Adverse Reactions: No Known Allergies Allergy (Verified 10/25/16 17:53) Past Medical History - General Information source: Patient - Social History Smoking Status: Never Smoker Chew tobacco use (# tins/day): No Frequency of alcohol use: Heavy Drug Abuse: None Lives with: Family Family History: Other - Heart disease and stroke - Past Medical History Cardiac Medical History: Reports: Hx Heart Attack, Hx Hypercholesterolemia, Hx Hypertension Neurological Medical History: Reports: Hx Seizures Renal/ Medical History: Denies: Hx Peritoneal Dialysis GI Medical History: Reports: Hx Gastroesophageal Reflux Disease Past Surgical History: Reports: Hx Abdominal Surgery, Other - Abdominal surgery in the past - Immunizations Immunizations up to date: Yes Hx Diphtheria, Pertussis, Tetanus Vaccination: No Hx Pneumococcal Vaccination: 01/03/16 Review of Systems - Review of Systems Constitutional: No symptoms reported EENT: No symptoms reported Cardiovascular: See HPI Respiratory: No symptoms reported Gastrointestinal: See HPI Genitourinary: No symptoms reported Male Genitourinary: No symptoms reported Musculoskeletal: No symptoms reported Skin: No symptoms reported Hematologic/Lymphatic: No symptoms reported Neurological/Psychological: No symptoms reported Physical Exam - Vital signs Vitals: Temp Pulse Resp BP Pulse Ox 97.8 F 104 H 16 119/88 H 97 10/25/16 17:57 10/25/16 17:57 10/25/16 17:57 10/25/16 17:57 10/25/16 17:57 Interpretation: Normal - General General appearance: Appears well, Alert In distress: None - HEENT Head: Normocephalic, Atraumatic Eyes: Normal Pupils: PERRL - Respiratory Respiratory status: No respiratory distress Chest status: Nontender Breath sounds: Normal Chest palpation: Normal - Cardiovascular Rhythm: Regular. No: Tachycardia Heart sounds: Normal auscultation, S1 appreciated, S2 appreciated Murmur: No - Abdominal Inspection: Normal Distension: No distension Bowel sounds: Normal Tenderness: Tender - There is some tenderness in the left upper quadrant and epigastric areas, no guarding, no rigidity, otherwise unremarkable abdomen Organomegaly: No organomegaly - Back Back: Normal, Nontender. No: Tender, CVA tenderness - Extremities General upper extremity: Normal inspection, Nontender, Normal color, Normal ROM , Normal temperature General lower extremity: Normal inspection, Nontender, Normal color, Normal ROM , Normal temperature, Normal weight bearing. No: [place]'s sign - Neurological Neuro grossly intact: Yes Cognition: Normal Orientation: AAOx4 Mony Coma Scale Eye Opening: Spontaneous [place] Coma Scale Verbal: Oriented Mony Coma Scale Motor: Obeys Commands [place] Coma Scale Total: 15 Speech: Normal Motor strength normal: LUE, RUE, LLE, RLE Sensory: Normal - Psychological Associated symptoms: Normal affect, Normal mood - Skin Skin Temperature: Warm Skin Moisture: Dry Skin Color: Normal Course - Re-evaluation Re-evalutation: EKG sinus rhythm with no T-wave inversions or ST segment changes in consecutive leads. Initial workup shows unremarkable CBC, chemistry shows mild hyponatremia but this is improved compared to prior and is likely related to patient's alcohol abuse. CK-MB is 10.8, however creatinine kinase is also elevated, will trend. Troponin negative. Chest x-ray unremarkable. On examination patient has left upper quadrant and epigastric pain consistent with gastritis in a patient who abuses alcohol. Termination after oral medication, resting comfortably, has no current complaints. I discussed initial workup, discussed trending cardiac enzyme, he is in agreement with this. Trended enzyme shows downtrending CK and CK-MB, troponin still negative. Patient has had symptoms for months. Patient will be treated for gastritis, I also discussed alcohol cessation, detox and referral, and return precautions in detail. I discussed these with patient and , they both state appreciation and agreement. - Vital Signs Vital signs: Temp Pulse Resp BP Pulse Ox 97.8 F 104 H 16 122/101 H 95 07/24/17 17:57 10/25/16 17:57 10/25/16 23:45 10/25/16 23:45 10/25/16 23:45 - Laboratory Result Diagrams: 10/25/16 18:40 10/25/16 18:40 Laboratory results interpreted by me: 10/25/16 10/25/16 10/25/16 18:40 18:40 18:40 Sodium 136.0 L Chloride 97 L BUN 4 L Glucose 118 H Creatine Kinase 474 H CK-MB (CK-2) 10.80 H Total Protein 8.4 H Lipase 337.7 H 10/25/16 10/25/16 22:35 22:35 Sodium Chloride BUN Glucose Creatine Kinase 370 H CK-MB (CK-2) 8.21 H Total Protein Lipase Discharge - Discharge Clinical Impression: Upper abdominal pain Condition: Stable Disposition: HOME, SELF-CARE Additional Instructions: Your workup does not show any concerning abnormalities. Your symptoms and examination are consistent with likely gastritis and esophagitis, this is most likely from your frequent alcohol use. Continue your omeprazole, take the Carafate as prescribed as directed, avoid soaking, alcohol , spicy food, NSAIDs such as ibuprofen, aspirin, naproxen. Follow-up with referral for detox. In the emergency department for any concerning worsening symptoms including return or worsening pain, vomiting blood, black stools, or any other concerning symptoms. Prescriptions: Promethazine HCl [Phenergan 25 mg Tablet] 1 - 2 tab PO Q6H PRN #20 tablet PRN Reason: Sucralfate [Carafate 1 gm Tablet] 1 gm PO QID #40 tablet Referrals: [facility] [Primary Care Provider] - Follow up as needed [facility] [Provider Group] - Follow up as needed
[2016-10-25 23:10] LABS: CREATINE KINASE MB 8.21 ng/mL (<4.55)
[2016-10-25 23:14] LABS: TROPONIN I < 0.012 ng/mL
[2016-10-25 23:50] VITALS: BP 122/101
--- NOTE | 2016-10-26 12:52 | EKG REPORT ---
SEVERITY:- NORMAL ECG - SINUS RHYTHM : Confirmed by: Netta Sequeira MD 26-Oct-2016 12:51:06
== END 2016-10-25 23:50 | disposition home or self-care (01) ==
LOC: ER 17:42
DX: K29.70 Gastritis, unspecified, without bleeding (principal); F10.10 Alcohol abuse, uncomplicated; K21.9 Gastro-esophageal reflux disease without esophagitis; E87.1 Hypo-osmolality and hyponatremia; R74.8 Abnormal levels of other serum enzymes; R11.10 Vomiting, unspecified; R07.9 Chest pain, unspecified; R10.84 Generalized abdominal pain; I25.2 Old myocardial infarction; I10 Essential (primary) hypertension; Z79.899 Other long term (current) drug therapy; Z82.49 Family history of ischemic heart disease and other diseases of the circulatory system
CPT/HCPCS: 93005; 99285; 96360; 36415; 82553; 82550; 83690; 85025; 80053; 84484; 71020; 93010; S0119; J7030

== ENCOUNTER 2016-10-26 21:39 | Emergency (ER) | payer OTHER ==
[2016-10-26 22:58] LABS: ABSOLUTE LYMPHOCYTES (AUTO) 0.9 10^3/uL (0.5-4.7); ABSOLUTE MONOCYTES (AUTO) 0.9 10^3/uL (0.1-1.4); ABSOLUTE NEUT (AUTO) 6.5 10^3/uL (1.7-8.2); BASOPHILS % (AUTO) 0.3 % (0-2); EOSINOPHILS % (AUTO) 0.3 % (0-6); HEMATOCRIT 39.2 % (37.9-51.0); HEMOGLOBIN 13.5 g/dL (13.5-17.0); HGB HCT DIFFERENCE 1.3; LYMPHOCYTES % (AUTO) 10.8 % (13-45); MEAN CORPUSCULAR HEMOGLOBIN 32.9 pg (27.0-33.4); MEAN CORPUSCULAR HGB CONC 34.3 g/dL (32.0-36.0); MEAN CORPUSCULAR VOLUME 96 fl (80-97); MONOCYTES % (AUTO) 10.6 % (3-13); RED BLOOD COUNT 4.09 10^6/uL (4.35-5.55); RED CELL DISTRIBUTION WIDTH 13.4 % (11.5-14.0); WHITE BLOOD COUNT 8.4 10^3/uL (4.0-10.5)
[2016-10-26 23:22] LABS: ALANINE AMINOTRANSFERASE 44 U/L (21-72); ALBUMIN 4.5 g/dL (3.5-5.0); ALKALINE PHOSPHATASE 73 U/L (38-126); ANION GAP 16 (5-19); ASPARTATE AMINO TRANSFERASE 79 U/L (17-59); BILIRUBIN,DIRECT 0.3 mg/dL (0.0-0.4); BILIRUBIN,TOTAL 0.7 mg/dL (0.2-1.3); BLOOD UREA NITROGEN 3 mg/dL (7-20); CALCIUM 9.4 mg/dL (8.4-10.2); CARBON DIOXIDE 22 mmol/L (22-30); CHLORIDE 96 mmol/L (98-107); CREATININE RESULT 0.96 mg/dL (0.52-1.25); GLUCOSE 122 mg/dL (75-110); LIPASE 295.2 U/L (23-300); POTASSIUM 4.2 mmol/L (3.6-5.0); SODIUM 134.3 mmol/L (137-145); TOTAL PROTEIN 8.1 g/dL (6.3-8.2)
--- NOTE | 2016-10-26 23:59 | ER Document Report ---
ED General - General Chief Complaint: Abdominal Pain Stated Complaint: ABDOMINAL PAIN Notes: Patient is a 51-year-old male who comes emergency department by EMS for chief complaint of a seizure, patient was in bed at the time, he states he woke up on his side and felt very tired. Patient was in the emergency department yesterday and evaluated for vomiting and chest pain, he states he vomited a couple of times since and he has started to have diarrhea, he had 5+ episodes of nonbloody diarrhea during the course of today. He reports now lower and left -sided abdominal cramping, he denies any upper abdominal pain or chest pain. He reports a mild headache. He states he was sweating earlier like he was having a fever. He does have a history of seizures, his last one was about 6 months ago, he is on Depakote, he also continues to drink alcohol heavily daily. Reports compliance with Depakote. TRAVEL OUTSIDE OF THE [place] IN LAST 30 DAYS: No - Related Data Allergies/Adverse Reactions: No Known Allergies Allergy (Verified 10/25/16 17:53) Past Medical History - General Information source: Patient, Relative - Social History Smoking Status: Never Smoker Frequency of alcohol use: Heavy Drug Abuse: None Lives with: Family Family History: Other - Heart disease and stroke - Past Medical History Cardiac Medical History: Reports: Hx Heart Attack, Hx Hypercholesterolemia, Hx Hypertension Neurological Medical History: Reports: Hx Seizures Renal/ Medical History: Denies: Hx Peritoneal Dialysis GI Medical History: Reports: Hx Gastroesophageal Reflux Disease Past Surgical History: Reports: Hx Abdominal Surgery, Other - Abdominal surgery in the past - Immunizations Immunizations up to date: Yes Hx Diphtheria, Pertussis, Tetanus Vaccination: No Hx Pneumococcal Vaccination: 01/03/16 Review of Systems - Review of Systems Constitutional: No symptoms reported EENT: No symptoms reported Cardiovascular: No symptoms reported Respiratory: No symptoms reported Gastrointestinal: See HPI Genitourinary: No symptoms reported Male Genitourinary: No symptoms reported Musculoskeletal: No symptoms reported Skin: No symptoms reported Hematologic/Lymphatic: No symptoms reported Neurological/Psychological: See HPI Physical Exam - Vital signs Vitals: Temp Pulse Resp BP Pulse Ox 98.2 F 103 H 16 143/107 H 98 10/26/16 22:34 10/26/16 22:34 10/26/16 22:34 10/26/16 22:34 10/26/16 22:34 Interpretation: Normal - General General appearance: Other - patient shaky but well appearing otherwise In distress: None - HEENT Head: Normocephalic, Atraumatic Eyes: Normal Pupils: PERRL - Respiratory Respiratory status: No respiratory distress Chest status: Nontender Breath sounds: Normal. No: Decreased air movement, Wheezing Chest palpation: Normal - Cardiovascular Rhythm: Regular, Tachycardia Heart sounds: Normal auscultation, S1 appreciated, S2 appreciated Murmur: No - Abdominal Inspection: Normal Distension: No distension Bowel sounds: Normal Tenderness: Nontender. No: Tender, Guarding Organomegaly: No organomegaly - Back Back: Normal, Nontender. 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 He has a normal neurological exam otherwise. His abdomen is soft and benign, lungs clear. 10/27/16 01:29 to bedside. Reports his seizure lasted less than 1 minute. Last seizure about 6 months ago. CBC, chemistry unremarkable, magnesium normal, alcohol is negative. Patient has not had anything to drink for almost 24 hours now. Patient's Depakote level is also very low. Patient was given IV fluids, Zofran, Ativan, Keppra. On reevaluation he is calm, relaxed, has no tachycardia or shaking. No vomiting or diarrhea after meds. Tolerating PO. Patient admits to also skipping 4 out of the last 7-8 days of his depakote as well. Discussed with Dr. Win. Patient has recovered well tonight, recommends increasing depakote to return to normal levels, advising patient that he cannot stop cold turkey, and then having him perform close followup with detox. Patient and state they are comfortable and in agreement with this plan. Discussed return precautions as well. - Vital Signs Vital signs: Temp Pulse Resp BP Pulse Ox 98.2 F 103 H 16 143/107 H 98 10/26/16 22:34 10/26/16 22:34 10/26/16 22:34 10/26/16 22:34 10/26/16 22:34 - Laboratory Result Diagrams: 10/26/16 22:40 10/26/16 22:40 Laboratory results interpreted by me: 10/26/16 10/26/16 10/26/16 22:40 22:40 22:40 RBC 4.09 L Lymphocytes % 10.8 L Sodium 134.3 L Chloride 96 L BUN 3 L Glucose 122 H AST 79 H Valproic Acid 14.3 L Discharge - Discharge Clinical Impression: Seizure, Vomiting and diarrhea Alcohol dependence Qualifiers: Substance use status: unspecified alcohol-induced disorder Qualified Code(s): F10.29 - Alcohol dependence with unspecified alcohol-induced disorder Condition: Stable Disposition: HOME, SELF-CARE Additional Instructions: Please increase your Depakote to 2 pills twice a day for the next 3 days. Avoid missing doses in the future. You have alcohol dependence and will have withdrawal symptoms if alcohol is stopped. You cannot stop completely, you need to go through detox in order to perform this. Follow up with referral. Zofran or Phenergan if needed, start with bland food. Follow-up with primary care. Return to the Emergency department for any concerning or worsening symptoms. Referrals: [facility] [Provider Group] - Follow up as needed
[2016-10-27 00:08] LABS: MAGNESIUM 1.7 mg/dL (1.6-2.3)
[2016-10-27] MEDS: NORMAL SALINE 1000 ML 1,000 ML IV ONE (00:09)
[2016-10-27] MEDS: LEVETIRACETAM 500 MG/NACL-ISO 100 ML IV ONE (00:10)
[2016-10-27] MEDS: ONDANSETRON HCL INJ/PF 4 MG/2 ML SDV IV ONE (00:10)
[2016-10-27 00:13] LABS: VALPROIC ACID 14.3 ug/mL (50.0-120.0)
[2016-10-27 00:32] LABS: ALCOHOL < 10 mg/dL (NONE DETECTED)
[2016-10-27 01:42] LABS: APPEARANCE,URINE CLEAR; BILIRUBIN,URINE NEGATIVE (NEGATIVE); GLUCOSE, URINE NEGATIVE (NEGATIVE); KETONES,URINE NEGATIVE (NEGATIVE); LEUKOCYTE ESTERASE,URINE NEGATIVE (NEGATIVE); NITRITE,URINE NEGATIVE (NEGATIVE); PROTEIN,URINE NEGATIVE (NEGATIVE); URINE SPECIFIC GRAVITY 1.005; UROBILINOGEN,URINE NEGATIVE mg/dL (<2.0)
[2016-10-27] MEDS: LORAZEPAM INJ 2 MG/1 ML VIAL IV ONE (01:49)
[2016-10-27 02:25] LABS: URINE BARBITURATES SCREEN NEGATIVE; URINE METHADONE SCREEN NEGATIVE; URINE OPIATES LOW NEGATIVE; URINE PHENCYCLIDINE SCREEN NEGATIVE
[2016-10-27] MEDS ORDERED: ONDANSETRON ODT 4 MG TAB (6 TAB/DSPK) PO PRN (02:26)
[2016-10-27 03:07] VITALS: BP 138/104
== END 2016-10-27 02:55 | disposition home or self-care (01) ==
LOC: ER 21:39
DX: R56.9 Unspecified convulsions (principal); R11.10 Vomiting, unspecified; R19.7 Diarrhea, unspecified; R10.9 Unspecified abdominal pain; R51 Headache; F10.29 Alcohol dependence with unspecified alcohol-induced disorder
CPT/HCPCS: 36415; 80053; 80164; 80307; 81001; 83690; 83735; 85025; 96365; 96375; 99284; J1953; J2060; J2405; J7030

== ENCOUNTER 2017-01-21 11:46 | Emergency (ER) | payer SELFPAY ==
[2017-01-21 11:57] VITALS: BP 138/96
--- NOTE | 2017-01-21 13:33 | ER Document Report ---
HPI - HPI Patient complains to provider of: itchy rash Onset: Last week Pain Level: Denies Context: 51 yo male c/o [place]ie or oak between fingers and forearms after pulling weeds/dottie last week. Denies hx eczema. no fever. Associated Symptoms: None Exacerbated by: Denies Relieved by: Other - steroids work Similar symptoms previously: Yes Recently seen / treated by doctor: No - ROS ROS below otherwise negative: Yes Systems Reviewed and Negative: Yes All other systems reviewed and negative - CARDIOVASCULAR Cardiovascular: DENIES: Chest pain - DERM Skin Color: Normal, [place] Past Medical History - General Information source: Patient - Social History Smoking Status: Never Smoker Chew tobacco use (# tins/day): No Frequency of alcohol use: None Drug Abuse: None Lives with: Family Family History: Other - Heart disease and stroke Patient has suicidal ideation: No Patient has homicidal ideation: No - Past Medical History Cardiac Medical History: Reports: Hx Heart Attack, Hx Hypercholesterolemia, Hx Hypertension Neurological Medical History: Reports: Hx Seizures Renal/ Medical History: Denies: Hx Peritoneal Dialysis GI Medical History: Reports: Hx Gastroesophageal Reflux Disease Past Surgical History: Reports: Hx Abdominal Surgery, Other - Abdominal surgery in the past - Immunizations Immunizations up to date: Yes Hx Diphtheria, Pertussis, Tetanus Vaccination: No Hx Pneumococcal Vaccination: 01/03/16 Vertical Provider Document - CONSTITUTIONAL Agree With Documented VS: Yes Exam Limitations: No Limitations General Appearance: No Apparent Distress - INFECTION CONTROL TRAVEL OUTSIDE OF THE [place] IN LAST 30 DAYS: No - HEENT HEENT: Normal ENT Exam, Normocephalic - NECK Neck: Supple - RESPIRATORY O2 Sat by Pulse Oximetry: 100 - MUSCULOSKELETAL/EXTREMETIES Musculoskeletal/Extremeties: MAEW, FROM, Non-Tender - NEURO Level of Consciousness: Awake, Alert - DERM Integumentary: Rash - vesicular groups lateral and medial fingers which looks like dyshydrotic eczema but pt does not believe it is that, so will tx as he wishes with steroids which will help, but sending to team psychologist for final dx. 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 If you do not receive a survey, then you can go to the [facility] website, [email or web address] and place your comments about your very good care. Thank you very much. It was a pleasure being your medical provider today. Prescriptions: Hydroxyzine Pamoate [Vistaril 50 mg Capsule] 50 mg PO Q6HP PRN #30 capsule PRN Reason: Prednisone [Deltasone 10 mg Tablet] 10 mg PO ASDIR PRN #21 tablet PRN Reason: Referrals: DUKE STERLING DO [ACTIVE STAFF] - Follow up in 3-5 days
[2017-01-21] MEDS ORDERED: PREDNISONE 20 MG TABLET PO ONE (13:42)
[2017-01-21] MEDS ORDERED: HYDROXYZINE PAMOATE 50 MG CAPSULE PO ONE (13:43)
== END 2017-01-21 13:51 | disposition home or self-care (01) ==
LOC: ER 11:46
DX: L23.9 Allergic contact dermatitis, unspecified cause (principal)
CPT/HCPCS: 99283; J7512

== ENCOUNTER → 2017-04-15 | Outpatient (CLI) | payer BC ==
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
--- NOTE | 2017-04-15 15:10 | RADIOLOGY REPORT (SQ) ---
EXAM DESCRIPTION: LUMBAR SPINE COMPLETE COMPLETED DATE/TIME: 04/15/2017 12:39 pm REASON FOR STUDY: LUMBAGO WITH SCIATICA, UNSPECIFIED SIDE M54.40 LUMBAGO WITH SCIATICA, UNSPECIFIED SIDE M54.2 CERVICALGIA COMPARISON: None. NUMBER OF VIEWS: Five views including obliques. TECHNIQUE: AP, lateral, oblique, and sacral radiographic images acquired of the lumbar spine. LIMITATIONS: None. FINDINGS: MINERALIZATION: Normal. SEGMENTATION: Normal. No transitional anatomy. ALIGNMENT: Normal. VERTEBRAE: Maintained height. No fracture or worrisome bone lesion. DISCS: Disc space loss of height at L4-5. POSTERIOR ELEMENTS: Pedicles and facets are intact. No pars defect or posterior arch defects. Bilat eral facet arthropathy at L4-5 HARDWARE: None in the spine. PARASPINAL SOFT TISSUES: Normal. PELVIS: Intact as visualized. No fractures or worrisome bone lesions. SI joints intact. OTHER: No other significant finding. IMPRESSION: Degenerative changes at L4-5 TECHNICAL DOCUMENTATION: JOB ID: [id number] [employer]- All Rights Reserved
== END ==
LOC: OD 11:55
PROVIDERS: ATTEND Internal Medicine
DX: M54.2 Cervicalgia (principal); M47.896 Other spondylosis, lumbar region; M54.40 Lumbago with sciatica, unspecified side; M47.892 Other spondylosis, cervical region
CPT/HCPCS: 72050; 72110

== ENCOUNTER 2018-03-28 19:03 | Emergency (ER) | payer BC ==
[2018-03-28] MEDS ORDERED: LIDOCAINE 0.5%/EPINEPHRINE INJ 50 ML VIAL INJ ONE (20:09)
--- NOTE | 2018-03-28 20:10 | RADIOLOGY REPORT (SQ) ---
EXAM DESCRIPTION: CT HEAD WITHOUT COMPLETED DATE/TIME: 03/28/2018 8:00 pm REASON FOR STUDY: fall, etoh, laceration COMPARISON: 03/17/2012 TECHNIQUE: Axial images acquired through the brain without intravenous contrast. Images reviewed wi th bone, brain and subdural windows. Additional sagittal and coronal reconstructions were generated. Images stored on PACS. All CT scanners at this facility use dose modulation, iterative reconstruction, and/or weight based d osing when appropriate to reduce radiation dose to as low as reasonably achievable (ALARA). [facility]: Dose Right [facility]: CareDose [facility]: Dose Right [facility]: Teradose 4D [facility]: [employer] RADIATION DOSE: CT Rad equipment meets quality standard of care and radiation dose reduction techniq ues were employed. CTDIvol: 53.2 mGy. DLP: 1097 mGy-cm. mGy. LIMITATIONS: None. FINDINGS: VENTRICLES: Normal size and contour. CEREBRUM: No masses. No hemorrhage. No midline shift. No evidence for acute infarction. Normal gra y/white matter differentiation. No areas of low density in the white matter. CEREBELLUM: No masses. No hemorrhage. No alteration of density. No evidence for acute infarction. EXTRAAXIAL SPACES: No fluid collections. No masses. ORBITS AND GLOBE: No intra- or extraconal masses. Normal contour of globe without masses. CALVARIUM: No fracture. PARANASAL SINUSES: No fluid or mucosal thickening. SOFT TISSUES: No mass or hematoma. OTHER: No other significant finding. IMPRESSION: NORMAL BRAIN CT WITHOUT CONTRAST. EVIDENCE OF ACUTE STROKE: NO. COMMENT: Quality ID # [id number]: Final reports with documentation of one or more dose reduction techniques (e.g., Automated exposure control, adjustment of the mA and/or kV according to patient size, use of iterative reconstruction technique) TECHNICAL DOCUMENTATION: JOB ID: [id number] [employer]- All Rights Reserved Reading location - IP/workstation name: [email or web address]
--- NOTE | 2018-03-28 20:14 | RADIOLOGY REPORT (SQ) ---
EXAM DESCRIPTION: CT CERVICAL SPINE WITHOUT COMPLETED DATE/TIME: 03/28/2018 8:00 pm REASON FOR STUDY: fall, etoh, laceration COMPARISON: None. TECHNIQUE: Axial images acquired through the cervical spine without intravenous contrast. Images re viewed with lung, soft tissue and bone windows. Reconstructed coronal and sagittal MPR images review ed. Images stored on PACS. All CT scanners at this facility use dose modulation, iterative reconstruction, and/or weight based d osing when appropriate to reduce radiation dose to as low as reasonably achievable (ALARA). [facility]: Dose Right [facility]: CareDose [facility]: Dose Right [facility]: Teradose 4D [facility]: Smart [employer] RADIATION DOSE: CT Rad equipment meets quality standard of care and radiation dose reduction techniq ues were employed. CTDIvol: 18.1 mGy. DLP: 352 mGy-cm. mGy. LIMITATIONS: None. FINDINGS: ALIGNMENT: Anatomic. MINERALIZATION: Normal. VERTEBRAL BODIES: No fractures or dislocation. DISCS: Disc spaces are narrowed at C3-4 and from C5-C7. Anterior and posterior osteophytes are prese nt. FACETS, LATERAL MASSES, POSTERIOR ELEMENTS: Hypertrophic facet changes seen on the left in the upper to mid cervical spine. HARDWARE: None in the spine. VISUALIZED RIBS: No fractures. LUNG APICES AND SOFT TISSUES: No significant or acute findings. OTHER: No other significant finding. IMPRESSION: Degenerative disc disease, spondylosis, and facet arthropathy. TECHNICAL DOCUMENTATION: JOB ID: [id number] Quality ID # [id number]: Final reports with documentation of one or more dose reduction techniques (e.g., Au tomated exposure control, adjustment of the mA and/or kV according to patient size, use of iterative reconstruction technique) 2010 [employer]- All Rights Reserved Reading location - IP/workstation name: [email or web address]
--- NOTE | 2018-03-28 20:45 | RADIOLOGY REPORT (SQ) ---
EXAM DESCRIPTION: CT FACIAL AREA WITHOUT COMPLETED DATE/TIME: 03/28/2018 8:26 pm REASON FOR STUDY: fall, eyebrow left trauma COMPARISON: None. TECHNIQUE: Noncontrasted images through the facial bones and orbits windowed for bone and soft tissu e. Additional coronal and sagittal reconstructed images reviewed. All images stored on PACS. All CT scanners at this facility use dose modulation, iterative reconstruction, and/or weight based d osing when appropriate to reduce radiation dose to as low as reasonably achievable (ALARA). [facility]: Dose Right [facility]: CareDose [facility]: Dose Right [facility]: Teradose 4D [facility]: Smart [employer] [facility] RADIATION DOSE: CT Rad equipment meets quality standard of care and radiation dose reduction techniq ues were employed. CTDIvol: 30.4 mGy. DLP: 524 mGy-cm. mGy. LIMITATIONS: None. FINDINGS: FACIAL BONES: No fracture or bone lesion. ORBITS: Intact. No fracture. Symmetric intact globes and retroorbital soft tissues. PARANASAL SINUSES: Clear. No significant mucosal thickening, mass or fluid. No nasal polyps. Maxill rigo sinus outlets are patent. SOFT TISSUES: Laceration in the left brow. INFERIOR BRAIN: Limited view. No acute findings. OTHER: No other significant finding. IMPRESSION: No facial fracture. TECHNICAL DOCUMENTATION: JOB ID: [id number] Quality ID # [id number]: Final reports with documentation of one or more dose reduction techniques (e.g., Au tomated exposure control, adjustment of the mA and/or kV according to patient size, use of iterative reconstruction technique) 2010 [employer]- All Rights Reserved Reading location - IP/workstation name: [email or web address]
[2018-03-28] MEDS ORDERED: DIPH/PERTUSS(ACELL)/TETANUS VAC/PF 0.5 ML SYR (>=10YO) IM ONE (21:47)
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
[2018-03-28 23:03] VITALS: BP 113/73
== END 2018-03-28 23:03 | disposition home or self-care (01) ==
LOC: ER 19:03
DX: S09.90XA Unspecified injury of head, initial encounter (principal); S01.81XA Laceration without foreign body of other part of head, initial encounter; W01.10XA Fall on same level from slipping, tripping and stumbling with subsequent striking against unspecified object, initial encounter; I10 Essential (primary) hypertension; K21.9 Gastro-esophageal reflux disease without esophagitis; I25.2 Old myocardial infarction; E78.00 Pure hypercholesterolemia, unspecified
CPT/HCPCS: 99284; 90471; 70450; 70486; 72125; 90715; 12013; J3490

== ENCOUNTER → 2018-04-02 | Outpatient (CLI) | payer BC ==
--- NOTE | 2018-04-02 15:53 | RADIOLOGY REPORT (SQ) ---
EXAM DESCRIPTION: MRI CERVICAL SPINE WITHOUT COMPLETED DATE/TIME: 04/02/2018 3:29 pm REASON FOR STUDY: CERVICALGIA M54.2 CERVICALGIA COMPARISON: None. TECHNIQUE: Sagittal and Axial imaging includes T1, T2, STIR and gradient echo sequences. LIMITATIONS: None. FINDINGS: ALIGNMENT: Straightening. No subluxation. VERTEBRAE: Intact. BONE MARROW: Mild endplate edema in the lower cervical spine. No fracture or worrisome bone lesion. No marrow replacement process. DISCS: Multilevel disc space narrowing with disc osteophyte complexes. Relative sparing of C2-3 and C7-T1. HARDWARE: None in the spine. CORD AND BASE OF BRAIN: Normal in size and signal intensity. SOFT TISSUES: No soft tissue masses. C1-C2: No significant spinal stenosis. C2-C3: Left facet arthropathy with at least mild left foraminal stenosis. C3-C4: Disc osteophyte complex without cord compression. Prominent uncovertebral spurring with marke d bilateral foraminal stenosis. C4-C5: Disc osteophyte complex with prominent uncovertebral spurring. Facet arthropathy, particularl y on the left. Marked bilateral foraminal stenosis. C5-C6: Uncovertebral spurring bilaterally. Marked bilateral foraminal stenosis. C6-C7: Uncovertebral spurring with marked bilateral foraminal stenosis. C7-T1: Marked left foraminal stenosis. UPPER THORACIC: Incompletely imaged. No significant spinal stenosis or exit foraminal stenosis. OTHER: No other findings. IMPRESSION: Multilevel cervical spondylosis without evidence of davi cord compression. There is si gnificant foraminal stenosis at numerous levels bilaterally. TECHNICAL DOCUMENTATION: JOB ID: [id number] [employer]- All Rights Reserved Reading location - IP/workstation name: [email or web address]
== END ==
LOC: RAD 14:21
PROVIDERS: ATTEND Orthopaedic Surgery
DX: M54.2 Cervicalgia (principal)
CPT/HCPCS: 72141

== ENCOUNTER → 2018-06-23 | Outpatient (CLI) | payer BC ==
--- NOTE | 2018-06-24 08:41 | RADIOLOGY REPORT (SQ) ---
EXAM DESCRIPTION: CERV SP 3 VIEW OR LESS COMPLETED DATE/TIME: 06/23/2018 7:29 pm REASON FOR STUDY: CERVICAL RADICULOPATHY COMPARISON: MRI from 2018. FINDINGS: Three views cervical spine, lateral flexion-extension. Normal alignment. No abnormal motion on flexion-extension imaging. C3 through C6 instrumentation, intact. No fracture or bone lesion. TECHNICAL DOCUMENTATION: JOB ID: [id number] Reading location - IP/workstation name: [email or web address]
== END ==
LOC: RAD 19:15
PROVIDERS: ATTEND Specialist
DX: M54.12 Radiculopathy, cervical region (principal)
CPT/HCPCS: 72040

== ENCOUNTER → 2018-08-04 | Outpatient (CLI) | payer BC ==
--- NOTE | 2018-08-04 08:44 | RADIOLOGY REPORT (SQ) ---
EXAM DESCRIPTION: SPINE SINGLE VIEW; L SPINE FLEX/EXT ONLY COMPLETED DATE/TIME: 08/04/2018 8:10 am; 08/04/2018 8:09 am REASON FOR STUDY: CERVICAL RADICULOPATHY (M54.12), LUMBAR RADICULOPATHY (M54.16) M54.12 RADICULOPAT HY, CERVICAL REGION M54.16 RADICULOPATHY, LUMBAR REGION COMPARISON: None. TECHNIQUE: AP, flexion and extension radiographs of the spine. NUMBER OF VIEWS: Three views. LIMITATIONS: None. FINDINGS: There is slight anterior translation of L4 on L5 in flexion. Normal alignment in extensio n. OTHER: No other significant finding. IMPRESSION: Mild translation of L4 on L5 in flexion. TECHNICAL DOCUMENTATION: JOB ID: [id number] [employer]- All Rights Reserved Reading location - IP/workstation name: [email or web address]
--- NOTE | 2018-08-04 08:44 | RADIOLOGY REPORT (SQ) ---
EXAM DESCRIPTION: SPINE SINGLE VIEW; L SPINE FLEX/EXT ONLY COMPLETED DATE/TIME: 08/04/2018 8:10 am; 08/04/2018 8:09 am REASON FOR STUDY: CERVICAL RADICULOPATHY (M54.12), LUMBAR RADICULOPATHY (M54.16) M54.12 RADICULOPAT HY, CERVICAL REGION M54.16 RADICULOPATHY, LUMBAR REGION COMPARISON: None. TECHNIQUE: AP, flexion and extension radiographs of the spine. NUMBER OF VIEWS: Three views. LIMITATIONS: None. FINDINGS: There is slight anterior translation of L4 on L5 in flexion. Normal alignment in extensio n. OTHER: No other significant finding. IMPRESSION: Mild translation of L4 on L5 in flexion. TECHNICAL DOCUMENTATION: JOB ID: [id number] [employer]- All Rights Reserved Reading location - IP/workstation name: [email or web address]
--- NOTE | 2018-08-04 08:46 | RADIOLOGY REPORT (SQ) ---
EXAM DESCRIPTION: CERV SP 3 VIEW OR LESS COMPLETED DATE/TIME: 08/04/2018 8:09 am REASON FOR STUDY: CERVICAL RADICULOPATHY (M54.12), LUMBAR RADICULOPATHY (M54.16) M54.12 RADICULOPAT HY, CERVICAL REGION M54.16 RADICULOPATHY, LUMBAR REGION COMPARISON: 06/23/2018 TECHNIQUE: Lateral flexion and extension radiographs of the spine. NUMBER OF VIEWS: Two views. LIMITATIONS: None. FINDINGS: There is very slight retrolisthesis of C6 on 7. This is unchanged in both the flexion and extension views. OTHER: Postsurgical changes from C3 through C6. IMPRESSION: NO RADIOGRAPHIC EVIDENCE OF ABNORMAL MOTION. TECHNICAL DOCUMENTATION: JOB ID: [id number] [employer]- All Rights Reserved Reading location - IP/workstation name: [email or web address]
== END ==
LOC: RAD 07:23
PROVIDERS: ATTEND Specialist
DX: M54.12 Radiculopathy, cervical region (principal); M54.16 Radiculopathy, lumbar region
CPT/HCPCS: 72020; 72040; 72120

== ENCOUNTER → 2018-08-15 | Outpatient (CLI) | payer BC ==
--- NOTE | 2018-08-15 14:06 | RADIOLOGY REPORT (SQ) ---
EXAM DESCRIPTION: MRI LUMBAR SPINE WITHOUT COMPLETED DATE/TIME: 08/15/2018 1:50 pm REASON FOR STUDY: LUMBAR RADICULOPATHY (M54.16) M54.16 RADICULOPATHY, LUMBAR REGION COMPARISON: Radiographs 08/04/2018 TECHNIQUE: Sagittal and Axial imaging includes T1, T2, STIR and gradient echo sequences. Coronal T2/ HASTE imaging. LIMITATIONS: None. FINDINGS: VISUALIZED UPPER ABDOMEN: Limited evaluation. No acute or suspicious findings suggested. SEGMENTATION: No transitional anatomy. The lowest well-developed disc space is labeled L5-S1. ALIGNMENT: Anatomic. VERTEBRAE: Intact. BONE MARROW: Normal. No marrow replacement or reactive changes. DISC SIGNAL: L4-5 and L5-S1 disc spaces are mildly narrowed with slightly decreased signal intensity. POSTERIOR ELEMENTS: Generally intact. No pars defect evident. HARDWARE: None in the spine. CORD AND CONUS: Normal in size and signal intensity. Conus at the L1-2 level. SOFT TISSUES: No aortic aneurysm seen. No bulky retroperitoneal adenopathy or mass. No paraspinal mas s or fluid. L1-L2: No significant spinal stenosis or exit foraminal stenosis. L2-L3: No significant spinal stenosis or exit foraminal stenosis. L3-L4: No significant spinal stenosis or exit foraminal stenosis. L4-L5: Mild right-sided disc bulge does not appear to contact the exiting nerve root. L5-S1: A small annular tear is suggested an old left paracentral location. LOWER THORACIC: Incompletely imaged. No stenosis seen. SACRUM: Visualized upper sacrum intact. OTHER: No other significant findings. IMPRESSION: Small right-sided disc bulge at L4-5 does not appear to contact the exiting nerve root. Small annular tear is present at L5-S1. TECHNICAL DOCUMENTATION: JOB ID: [id number]- All Rights Reserved Reading location - IP/workstation name: [email or web address]
== END ==
LOC: RAD 12:50
PROVIDERS: ATTEND Specialist
DX: M54.16 Radiculopathy, lumbar region (principal)
CPT/HCPCS: 72148

== ENCOUNTER → 2019-01-26 | Outpatient (CLI) | payer BC ==
--- NOTE | 2019-01-26 12:49 | RADIOLOGY REPORT (SQ) ---
EXAM DESCRIPTION: L SPINE FLEX/EXT ONLY COMPLETED DATE/TIME: 01/26/2019 11:56 am REASON FOR STUDY: LUMBAR RADICULOPATHY (M54.16) M54.16 RADICULOPATHY, LUMBAR REGION COMPARISON: MRI lumbar spine 08/15/2018 NUMBER OF VIEWS: Lateral flexion, lateral extension lumbar spine films TECHNIQUE: Lateral flexion, lateral extension lumbar spine films LIMITATIONS: None. FINDINGS: Since the prior imaging, patient is post fusion at the L4-5 level with disc space prosthes is and bilateral transpedicular screws and dorsal fixation plates. No significant anterolisthesis of L4 over L5. Mild disc space loss of height with anterior osteophyte formation at L1-2. Flexion and extension images demonstrate no instability. Calcified gallstones at the edge of the field of view IMPRESSION: Post fusion at L4-5. No instability on flexion/extension TECHNICAL DOCUMENTATION: JOB ID: [id number] [employer]- All Rights Reserved Reading location - IP/workstation name: [email or web address]
== END ==
LOC: RAD 11:36
PROVIDERS: ATTEND Specialist
DX: M54.16 Radiculopathy, lumbar region (principal); K80.80 Other cholelithiasis without obstruction
CPT/HCPCS: 72120

== ENCOUNTER → 2019-02-21 | Outpatient (CLI) | payer BC ==
--- NOTE | 2019-02-21 17:23 | RADIOLOGY REPORT (SQ) ---
EXAM DESCRIPTION: L SPINE WHOLE COMPLETED DATE/TIME: 02/21/2019 4:37 pm REASON FOR STUDY: LUMBAR RADICULOPATHY COMPARISON: 01/26/2019, 08/04/2018 NUMBER OF VIEWS: Four views TECHNIQUE: AP and lateral neutral lumbar spine, lateral flexion lumbar spine, lateral extension lumb ar spine imaging LIMITATIONS: None. FINDINGS: MINERALIZATION: Normal. SEGMENTATION: Normal. No transitional anatomy. ALIGNMENT: Normal. FLEXION/EXTENSION: No instability. VERTEBRAE: Maintained height. No fracture or worrisome bone lesion. DISCS: Mild disc space loss of height with anterior osteophyte formation at L1-2. Post fusion with h ardware at L4-5, metallic disc spacer and transpedicular screws/dorsal fixation plates are present POSTERIOR ELEMENTS: Pedicles and facets are intact. No pars defect or posterior arch defects. HARDWARE: As above OTHER: No other significant finding. IMPRESSION: Post fusion at L4-5 NO INSTABILITY ON FLEXION/EXTENSION. TECHNICAL DOCUMENTATION: JOB ID: [id number] [employer]- All Rights Reserved Reading location - IP/workstation name: [email or web address]
== END ==
LOC: RAD 16:20
PROVIDERS: ATTEND Specialist
DX: M54.16 Radiculopathy, lumbar region (principal)
CPT/HCPCS: 72110

== ENCOUNTER → 2019-03-16 | Outpatient (CLI) | payer BC ==
--- NOTE | 2019-03-17 14:41 | RADIOLOGY REPORT (SQ) ---
EXAM DESCRIPTION: CT LUMBAR SPINE WITHOUT COMPLETED DATE/TIME: 03/16/2019 10:45 am REASON FOR STUDY: M54.16 RADICULOPATHY, LUMBAR REGION M54.16 RADICULOPATHY, LUMBAR REGION COMPARISON: Recent radiographs. MRI 08/15/2018. TECHNIQUE: Axial images acquired through the lumbar spine without intravenous contrast. Images revi ewed with lung, soft tissue and bone windows. Reconstructed coronal and sagittal MPR images reviewed . All images stored on PACS. All CT scanners at this facility use dose modulation, iterative reconstruction, and/or weight based d osing when appropriate to reduce radiation dose to as low as reasonably achievable (ALARA). [facility]: Dose Right [facility]: CareDose [facility]: Dose Right [facility]: Teradose 4D [facility]: iScreen Vision RADIATION DOSE: mGy. LIMITATIONS: None. FINDINGS: SEGMENTATION: Normal. No transitional anatomy. ALIGNMENT: Normal. VERTEBRAL BODIES: No fractures. No dislocation. No acute findings. DISCS: Variable disc height loss. Disc fixation device at L4-5. PEDICLES, TRANSVERSE PROCESSES: No fractures. No dislocation. No acute findings. FACETS, POSTERIOR ELEMENTS: Facet arthropathy. No pars defect. HARDWARE: Dorsal rods and screws bilaterally at L4-5. Grossly intact without evidence of loosening. VISUALIZED RIBS: No fractures. SOFT TISSUES: No significant or acute finding in adjacent soft tissues. OTHER: No other significant finding. IMPRESSION: 1. No malalignment. Instrumentation looks intact. No gross fracture or bone lesion. TECHNICAL DOCUMENTATION: JOB ID: [id number] Quality ID # [id number]: Final reports with documentation of one or more dose reduction techniques (e.g., Au tomated exposure control, adjustment of the mA and/or kV according to patient size, use of iterative reconstruction technique) 2010 [employer]- All Rights Reserved Reading location - IP/workstation name: [email or web address]
== END ==
LOC: RAD 10:08
PROVIDERS: ATTEND Specialist
DX: M54.16 Radiculopathy, lumbar region (principal)
CPT/HCPCS: 72131

== ENCOUNTER 2019-07-16 21:02 | Emergency (ER) | payer SELFPAY ==
[2019-07-16] MEDS ORDERED: ASPIRIN 81 MG TABLET, CHEWABLE PO ONE (22:28)
--- NOTE | 2019-07-16 22:54 | ER Document Report ---
Entered by LADONNA LARSON SCRIBE 07/16/19 0463 Acting as scribe for:DEBRA VELIZ DO ED General - General Chief Complaint: Chest Pain Stated Complaint: CHEST PAIN Time Seen by Provider: 07/16/19 21:56 Mode of Arrival: Ambulatory Information source: Patient Notes: This 54 year old male patient presents to the ED today with complaints of sharp epigastric and sternal chest pain that started around 1600 this evening. Patient also notes sore/scratchy throat, cough, posttussive emesis, and diarrhea intermittently for the past x1 month. He states that he has been taking OTC medications for his respiratory symptoms without relief. He states that he does have COVID-19 concerns due to his symptoms. Denies sick contacts, fever, chills, black/tarry stools, or history of pancreatitis. He reports a PMHx of HLD, HTN, VA, GERD, and seizures. Reports ETOH use (4 beers qd) with last use this morning, but denies use of tobacco or recreational drugs. TRAVEL OUTSIDE OF THE [place] IN LAST 30 DAYS: No - Related Data Allergies/Adverse Reactions: No Known Allergies Allergy (Verified 07/16/19 21:28) Home Medications: dexilant, depakote, losartan Past Medical History - Social History Smoking Status: Never Smoker Cigarette use (# per day): No Chew tobacco use (# tins/day): No Smoking Education Provided: No Frequency of alcohol use: daily 4 beers Drug Abuse: None Lives with: Spouse/Significant other Family History: Reviewed & Not Pertinent, CAD, CVA Patient has suicidal ideation: No Patient has homicidal ideation: No - Past Medical History Cardiac Medical History: Reports: Hx Heart Attack, Hx Hypercholesterolemia, Hx Hypertension Neurological Medical History: Reports: Hx Seizures GI Medical History: Reports: Hx Gastroesophageal Reflux Disease Past Surgical History: Reports: Hx Abdominal Surgery, Hx Orthopedic Surgery - Immunizations Immunizations up to date: Yes Hx Diphtheria, Pertussis, Tetanus Vaccination: No Hx Pneumococcal Vaccination: 01/03/16 Review of Systems - Review of Systems Constitutional: No symptoms reported EENT: See HPI, Throat pain Cardiovascular: See HPI, Chest pain Respiratory: See HPI, Cough Gastrointestinal: See HPI, Diarrhea, Nausea, Vomiting. denies: Black stools Genitourinary: No symptoms reported Male Genitourinary: No symptoms reported Musculoskeletal: No symptoms reported Skin: No symptoms reported Hematologic/Lymphatic: No symptoms reported Neurological/Psychological: No symptoms reported -: Yes All other systems reviewed and negative Physical Exam - Vital signs Vitals: Temp Resp Pulse Ox 98.0 F 14 96 07/16/19 21:17 07/16/19 21:17 07/16/19 21:17 Interpretation: Normal - General General appearance: Alert In distress: None - HEENT Head: Normocephalic, Atraumatic Eyes: Normal Pupils: PERRL - Respiratory Respiratory status: No respiratory distress Chest status: Tender - Mild inferior sternum pain with palpation Breath sounds: Normal Chest palpation: Normal - Cardiovascular Rhythm: Regular Heart sounds: Normal auscultation Murmur: No Friction rub: No Gallop: None auscultated - Abdominal Inspection: Normal Distension: No distension Bowel sounds: Normal Tenderness: Tender - Mild epigastric pain with palpation Organomegaly: No organomegaly - Back Back: Normal, Nontender - Extremities General upper extremity: Normal inspection General lower extremity: Normal inspection - Neurological Neuro grossly intact: Yes Orientation: AAOx4 Mony Coma Scale Eye Opening: Spontaneous [place]ony Coma Scale Verbal: Oriented [place] Coma Scale Motor: Obeys Commands [place] Coma Scale Total: 15 - Psychological Associated symptoms: Normal affect, Normal mood - Skin Skin Temperature: Warm Skin Moisture: Dry Skin Color: Normal Course - Re-evaluation Re-evalutation: 07/17/19 00:47 MDM 54 year old male with epigastric pain and cough. Workup here is reassuring. Discussed follow up and he expressed understanding. - Vital Signs Vital signs: Temp Pulse Resp BP Pulse Ox 97.9 F 86 18 146/107 H 97 07/16/19 21:18 07/16/19 21:18 07/16/19 21:23 07/16/19 21:23 07/16/19 21:23 - Laboratory Result Diagrams: 07/16/19 21:25 07/16/19 21:25 Laboratory results interpreted by me: 07/16/19 07/16/19 07/16/19 18:16 21:25 21:25 [place] % (Auto) 13.5 H Sodium 127.2 L Chloride 94 L BUN 6 L Glucose 113 H Valproic Acid < 10.0 L - Diagnostic Test Radiology reviewed: Image reviewed, Reports reviewed - EKG Interpretation by Me EKG shows normal: Sinus rhythm - NSR NL [place] [address] elevation or depression my interpretation. Discharge - Discharge Clinical Impression: Epigastric pain, Cough Condition: Good Disposition: HOME, SELF-CARE Instructions: Abdominal Pain ([facility]), Cough Suppressant & Expectorant Medications, Family Physicians / Practices, Low-Fat Diet ([facility]), Reflux Disease (GERD) ([facility]) Additional Instructions: Call your doctor or the referral doctor for follow up. Rest. Take the medicine as directed. Return here for any problems or any concerns, including but not limited to chest pain or shortness of breath. Prescriptions: Benzonatate [Tessalon Perles 100 mg Capsule] 200 mg PO Q8HP PRN #40 capsule PRN Reason: Sucralfate [Carafate 1 gm Tablet] 1 gm PO ACHS #40 tablet I personally performed the services described in the documentation, reviewed and edited the documentation which was dictated to the scribe in my presence, and it accurately records my words and actions.
[2019-07-16 23:10] LABS: ALBUMIN 4.5 g/dL (3.5-5.0); ALKALINE PHOSPHATASE 58 U/L (38-126); ANION GAP 11 (5-19); ASPARTATE AMINO TRANSFERASE 21 U/L (17-59); BILIRUBIN,TOTAL 0.4 mg/dL (0.2-1.3); BLOOD UREA NITROGEN 6 mg/dL (7-20); CALCIUM 9.3 mg/dL (8.4-10.2); CARBON DIOXIDE 22 mmol/L (22-30); CHLORIDE 94 mmol/L (98-107); GLUCOSE 113 mg/dL (75-110); POTASSIUM 4.2 mmol/L (3.6-5.0); TOTAL PROTEIN 7.4 g/dL (6.3-8.2)
[2019-07-16 23:19] LABS: ABSOLUTE BASOPHILS # (AUTO) 0.1 10^3/uL (0.0-0.2); ABSOLUTE EOSINOPHILS # (AUTO) 0.1 10^3/uL (0.0-0.6); ABSOLUTE NEUT (AUTO) 4.6 10^3/uL (1.7-8.2); BASOPHILS % (AUTO) 0.8 % (0-2); EOSINOPHILS % (AUTO) 1.5 % (0-6); HEMATOCRIT 41.2 % (37.9-51.0); HEMOGLOBIN 14.5 g/dL (13.5-17.0); LYMPHOCYTES % (AUTO) 25.3 % (13-45); MEAN CORPUSCULAR HEMOGLOBIN 31.5 pg (27.0-33.4); MEAN CORPUSCULAR HGB CONC 35.2 g/dL (32.0-36.0); MEAN CORPUSCULAR VOLUME 89 fl (80-97); MONOCYTES % (AUTO) 13.5 % (3-13); PLATELET COUNT 284 10^3/uL (150-450); RED BLOOD COUNT 4.62 10^6/uL (4.35-5.55); RED CELL DISTRIBUTION WIDTH 13.4 % (11.5-14.0); SEGMENTED NEUTROPHILS % (AUTO) 58.9 % (42-78); TOTAL CELLS COUNTED % (AUTO) 100 %; WHITE BLOOD COUNT 7.7 10^3/uL (4.0-10.5)
--- NOTE | 2019-07-16 23:47 | RADIOLOGY REPORT (SQ) ---
EXAM DESCRIPTION: AP portable radiograph of the chest CLINICAL HISTORY: 54 years Male, htn COMPARISON: Two views of the chest October 25, 2016 FINDINGS: Exam is overpenetrated. Lungs: No obvious lung abnormality is seen. The exam is overpenetrated which makes assessment of the lungs somewhat limited. Mediastinum: Cardiac and mediastinal silhouette are normal. Bones: Osseous structures are stable IMPRESSION: No acute process
[2019-07-17 01:25] VITALS: BP 125/88
--- NOTE | 2019-07-17 08:10 | EKG REPORT ---
SEVERITY:- BORDERLINE ECG - SINUS RHYTHM BORDERLINE INFERIOR Q WAVES : Confirmed by: Aravind Rodriguez MD 17-Jul-2019 08:10:05
== END 2019-07-17 01:23 | disposition home or self-care (01) ==
LOC: ER 21:02
DX: R10.13 Epigastric pain (principal); R05 Cough; R07.9 Chest pain, unspecified; R19.7 Diarrhea, unspecified; E78.5 Hyperlipidemia, unspecified; I10 Essential (primary) hypertension; I25.2 Old myocardial infarction; K21.9 Gastro-esophageal reflux disease without esophagitis; R56.9 Unspecified convulsions
CPT/HCPCS: 36415; 71045; 80053; 80164; 80307; 83690; 83735; 84484; 85025; 93005; 93010; 99284

== ENCOUNTER → 2019-09-06 | Outpatient (CLI) | payer OTHER ==
[2019-09-06 09:51] LABS: ALBUMIN 4.4 g/dL (3.5-5.0); ALKALINE PHOSPHATASE 56 U/L (38-126); ANION GAP 8 (5-19); ASPARTATE AMINO TRANSFERASE 25 U/L (17-59); BILIRUBIN,TOTAL 0.3 mg/dL (0.2-1.3); BLOOD UREA NITROGEN 10 mg/dL (7-20); CALCIUM 9.4 mg/dL (8.4-10.2); CARBON DIOXIDE 28 mmol/L (22-30); CHLORIDE 98 mmol/L (98-107); CHOLESTEROL 240.06 mg/dL (0-200); GLUCOSE 113 mg/dL (75-110); POTASSIUM 5.2 mmol/L (3.6-5.0); TOTAL PROTEIN 7.5 g/dL (6.3-8.2); TRIGLYCERIDES 179 mg/dL (<150)
[2019-09-06 10:03] LABS: DIRECT LDL 175 mg/dL (<100)
[2019-09-06 10:23] LABS: VLDL CHOLESTEROL 35.8 mg/dL (10-31)
[2019-09-07 08:00] LABS: HEPATITIS C VIRUS AB <0.1 s/co ratio (0.0-0.9)
== END ==
LOC: OD 08:22
PROVIDERS: ATTEND Internal Medicine
DX: I10 Essential (primary) hypertension (principal); E87.1 Hypo-osmolality and hyponatremia; Z79.891 Long term (current) use of opiate analgesic
CPT/HCPCS: 36415; 80053; 80061; 80164; 83036; 84153; 84443; 86803; 86804

== ENCOUNTER 2019-10-13 16:08 | Emergency (ER) | payer MEDICAID ==
--- NOTE | 2019-10-13 16:43 | RADIOLOGY REPORT (SQ) ---
EXAM DESCRIPTION: CHEST SINGLE VIEW IMAGES COMPLETED DATE/TIME: 10/13/2019 4:29 pm REASON FOR STUDY: chest pain COMPARISON: Chest radiographs 07/16/2019 EXAM PARAMETERS: NUMBER OF VIEWS: One view. TECHNIQUE: Single frontal radiographic view of the chest acquired. RADIATION DOSE: NA LIMITATIONS: None. FINDINGS: LUNGS AND PLEURA: No opacities, masses or pneumothorax. No pleural effusion. MEDIASTINUM AND HILAR STRUCTURES: No masses. Contour normal. HEART AND VASCULAR STRUCTURES: Heart normal in size. Normal vasculature. BONES: No acute findings. HARDWARE: None in the chest. OTHER: No other significant finding. IMPRESSION: NO ACUTE RADIOGRAPHIC FINDING IN THE CHEST. TECHNICAL DOCUMENTATION: JOB ID: [id number] 2010 [employer]- All Rights Reserved Reading location - IP/workstation name: [email or web address]
[2019-10-13 16:49] LABS: ABSOLUTE LYMPHOCYTES (AUTO) 0.8 10^3/uL (0.5-4.7); ABSOLUTE MONOCYTES (AUTO) 0.9 10^3/uL (0.1-1.4); ABSOLUTE NEUT (AUTO) 9.9 10^3/uL (1.7-8.2); BASOPHILS % (AUTO) 0.2 % (0-2); EOSINOPHILS % (AUTO) 0.1 % (0-6); HEMATOCRIT 41.7 % (37.9-51.0); HEMOGLOBIN 14.4 g/dL (13.5-17.0); LYMPHOCYTES % (AUTO) 7.2 % (13-45); MEAN CORPUSCULAR HGB CONC 34.5 g/dL (32.0-36.0); MEAN CORPUSCULAR VOLUME 90 fl (80-97); MONOCYTES % (AUTO) 7.8 % (3-13); PLATELET COUNT 311 10^3/uL (150-450); RED BLOOD COUNT 4.64 10^6/uL (4.35-5.55); RED CELL DISTRIBUTION WIDTH 13.5 % (11.5-14.0); SEGMENTED NEUTROPHILS % (AUTO) 84.7 % (42-78); TOTAL CELLS COUNTED % (AUTO) 100 %; WHITE BLOOD COUNT 11.7 10^3/uL (4.0-10.5)
[2019-10-13 17:06] LABS: ALBUMIN 4.4 g/dL (3.5-5.0); ALKALINE PHOSPHATASE 59 U/L (38-126); ANION GAP 9 (5-19); ASPARTATE AMINO TRANSFERASE 26 U/L (17-59); BILIRUBIN,TOTAL 0.7 mg/dL (0.2-1.3); BLOOD UREA NITROGEN 5 mg/dL (7-20); CALCIUM 9.5 mg/dL (8.4-10.2); CARBON DIOXIDE 26 mmol/L (22-30); CHLORIDE 96 mmol/L (98-107); CREATINE KINASE 118 U/L (55-170); GLUCOSE 102 mg/dL (75-110); POTASSIUM 4.2 mmol/L (3.6-5.0); TOTAL PROTEIN 7.3 g/dL (6.3-8.2)
--- NOTE | 2019-10-13 17:08 | ER Document Report ---
ED General - General Chief Complaint: Chest Pain Stated Complaint: CHEST PAIN Time Seen by Provider: 10/13/19 16:53 Primary Care Provider: [facility] [NO LOCAL MD] - Follow up as needed TRAVEL OUTSIDE OF THE [place] IN LAST 30 DAYS: No - HPI Notes: Patient is a 54-year-old male who presents to the emergency department for evaluation of chest pain. He states he was weed eating all morning. At 1130 he developed right-sided chest pain. It was sharp. He points to the right mid chest on the right parasternal area. He states he also had some numbness and pain in his right forearm. He states that after a while his became concerned, made him to some aspirin. Shortly after that he had some vomiting. He states his pain was an 8 out of 10 all day. He states after some nitroglycerin it seems to have improved. He denies any associated shortness of breath, diaphoresis, near syncope. He really states he has not had pain like this in the past. It was not worsened by deep breaths. Nothing seems to make it better short of the nitroglycerin. - Related Data Allergies/Adverse Reactions: No Known Allergies Allergy (Verified 07/16/19 21:28) Home Medications: Losartan 100 mg daily, omeprazole, Depakote Past Medical History - General Information source: Patient - Social History Smoking Status: Former Smoker Frequency of alcohol use: Rare Drug Abuse: None Family History: CAD - Father of [place] at age 59, CVA - Past Medical History Cardiac Medical History: Reports: Hx Hypercholesterolemia, Hx Hypertension Neurological Medical History: Reports: Hx Seizures Renal/ Medical History: Denies: Hx Peritoneal Dialysis GI Medical History: Reports: Hx Gastroesophageal Reflux Disease Past Surgical History: Reports: Hx Abdominal Surgery, Hx Orthopedic Surgery, Other - Abdominal surgery in the past - Immunizations Immunizations up to date: Yes Hx Diphtheria, Pertussis, Tetanus Vaccination: No Hx Pneumococcal Vaccination: 01/03/16 Review of Systems - Review of Systems Cardiovascular: See HPI Gastrointestinal: See HPI -: Yes All other systems reviewed and negative Physical Exam - Vital signs Vitals: Temp Pulse Ox 98.2 F 99 10/13/19 16:13 10/13/19 16:13 - Notes Notes: Vital signs reviewed, please refer to chart. Head is normocephalic, atraumatic. Pupils equal round, reactive to light. Neck is supple without meningismus. Heart is regular rate and rhythm. Lungs are clear to auscultation bilaterally. No abnormality to chest wall, chest wall nontender. Abdomen is soft, nontender, normoactive bowel sounds throughout. Extremities without cyanosis, clubbing. Posterior calves are nontender. Peripheral pulses are equal. Skin is warm and dry. Patient is awake, alert, neurological exam is nonfocal. Course - Re-evaluation Re-evalutation: 10/13/19 17:47 Patient presents to the emergency department for evaluation of chest pain. I did review his EKG. He has some ST elevation changes, but it appears more diffuse. He really does not have any reciprocal changes. Decision was made to evaluate with cardiac enzymes. He had already received aspirin. He had some help with nitroglycerin. When I found his cardiac enzymes are positive, I ordered a nitroglycerin drip, and consulted Dr. Matias. He was able to evaluate the EKG. He agrees that perhaps it seems more consistent with a pericarditis, there are ST changes, but nothing reciprocal. He is concerned that this could be unstable angina as well, and believes that transfer to a facility with intervention capabilities is more appropriate. Given this information I have consulted [facility]. I will start with medicine. The patient is started on a nitroglycerin drip as well as heparin. He is currently stable. We will continue to monitor. 10/13/19 18:[address] Fortune, internal medicine physician substation operator automatic at [facility]. She was notified of the EKG changes, consultation with Dr. Matias, and his opinion that the patient be some place for intervention were possible. She will call to see if any beds are available for acceptance to [facility]. Patient is currently stable, awaiting nitroglycerin drip. 10/13/19 18:26 Awaiting bed assignment at [facility], patient will be transferred there for further care. 10/13/19 19:45 Transport has arrived. Patient states his pain is still a 0.5-1 out of 10. His blood pressure has elevated somewhat. I will add and increase the nitroglycerin drip to 10 mics per minute. Otherwise the patient is stable for transport. - Vital Signs Vital signs: Temp Pulse Resp BP Pulse Ox 98.0 F 17 161/103 H 97 10/13/19 19:41 10/13/19 19:31 10/13/19 19:31 10/13/19 19:31 - Laboratory Result Diagrams: 10/13/19 16:19 10/13/19 16:19 Laboratory results interpreted by me: 10/13/19 10/13/19 10/13/19 16:19 16:19 17:32 WBC 11.7 H Lymph % (Auto) 7.2 L Absolute Neuts (auto) 9.9 H Seg Neutrophils % 84.7 H Sodium 130.8 L Chloride 96 L BUN 5 L Urine Ketones TRACE H - Diagnostic Test Radiology reviewed: Reports reviewed Radiology results interpreted by me: 10/13/19 17:49 Chest X-Ray 10/13/19 16:13 IMPRESSION: NO ACUTE RADIOGRAPHIC FINDING IN THE CHEST. - EKG Interpretation by Me Additional EKG results interpreted by me: 10/13/19 17:49 Sinus mechanism with a rate of 75 bpm. Normal axis and intervals. ST changes, particularly in the anterolateral and inferior leads, ST elevation diffusely. No significant reciprocal depression. Findings concerning for infarction versus pericarditis. This is a change from prior. Discharge - Discharge Clinical Impression: NSTEMI (non-ST elevated myocardial infarction) Condition: Stable Disposition: [facility] Admitting Provider: Devika Referrals: [facility] [NO LOCAL MD] - Follow up as needed
[2019-10-13 17:18] LABS: CREATINE KINASE MB 3.19 ng/mL (<4.55)
[2019-10-13 17:19] LABS: TROPONIN I 0.187 ng/mL
[2019-10-13] MEDS ORDERED: NITROGLYCERIN/D5W 50 MG/250 ML RTUINJ IV PRN (17:22)
[2019-10-13] MEDS ORDERED: HEPARIN SODIUM,PORCINE/D5W 25,000 UNIT/250 ML RTUINJ IV PRN (17:36)
[2019-10-13] MEDS ORDERED: HEPARIN SOD (PORCINE) 1,000 UNIT/ML 10 ML VIAL IV ONE (17:36)
[2019-10-13 17:55] LABS: INTERNATIONAL RATION (INR) 1.01; PROTHROMBIN TIME 13.3 SEC (11.4-15.4)
[2019-10-13 17:56] LABS: PARTIAL THROMBOPLASTIN TIME 25.8 SEC (23.5-35.8)
[2019-10-13 18:06] LABS: APPEARANCE,URINE CLEAR; BILIRUBIN,URINE NEGATIVE (NEGATIVE); COLOR,URINE YELLOW; GLUCOSE, URINE NEGATIVE (NEGATIVE); KETONES,URINE TRACE mg/dL (NEGATIVE); LEUKOCYTE ESTERASE,URINE NEGATIVE (NEGATIVE); NITRITE,URINE NEGATIVE (NEGATIVE); PROTEIN,URINE NEGATIVE (NEGATIVE); URINE SPECIFIC GRAVITY 1.017; UROBILINOGEN,URINE NEGATIVE mg/dL (<2.0)
[2019-10-13 18:29] LABS: URINE AMPHETAMINES SCREEN NEGATIVE; URINE BARBITURATES SCREEN NEGATIVE; URINE BENZODIAZEPINES SCREEN NEGATIVE; URINE COCAINE SCREEN NEGATIVE; URINE MARIJUANA (THC) SCREEN NEGATIVE; URINE METHADONE SCREEN NEGATIVE; URINE PHENCYCLIDINE SCREEN NEGATIVE
[2019-10-13 19:42] VITALS: BP 161/103
[2019-10-13] MEDS ORDERED: HEPARIN SOD (PORCINE) 1,000 UNIT/ML 10 ML VIAL IV PRN (20:37)
--- NOTE | 2019-10-13 22:41 | EKG REPORT ---
SEVERITY:- BORDERLINE ECG - SINUS RHYTHM BORDERLINE INFERIOR Q WAVES NO CHANGE : Confirmed by: Aravind Rodriguez MD 13-Oct-2019 22:40:02
== END 2019-10-13 19:57 | disposition short-term general hospital (02) ==
LOC: ER 16:08
DX: I21.4 Non-ST elevation (NSTEMI) myocardial infarction (principal); I10 Essential (primary) hypertension; R07.9 Chest pain, unspecified; R20.0 Anesthesia of skin; M79.631 Pain in right forearm; R11.10 Vomiting, unspecified; K21.9 Gastro-esophageal reflux disease without esophagitis; R56.9 Unspecified convulsions; Z79.899 Other long term (current) drug therapy; Z82.49 Family history of ischemic heart disease and other diseases of the circulatory system; Z82.3 Family history of stroke
CPT/HCPCS: 93005; 96376; 99285; 96365; 96368; 36415; 82553; 82550; 85025; 85610; 85730; 80053; 81001; 84484; 80307; 71045; 93010; J1644 ×2; J3490

== ENCOUNTER 2019-10-21 22:18 | Emergency (ER) | payer MEDICAID ==
[2019-10-21 22:52] LABS: APPEARANCE,URINE CLEAR; BILIRUBIN,URINE NEGATIVE (NEGATIVE); COLOR,URINE COLORLESS; GLUCOSE, URINE NEGATIVE (NEGATIVE); KETONES,URINE NEGATIVE (NEGATIVE); LEUKOCYTE ESTERASE,URINE NEGATIVE (NEGATIVE); NITRITE,URINE NEGATIVE (NEGATIVE); PROTEIN,URINE NEGATIVE (NEGATIVE); URINE SPECIFIC GRAVITY 1.003; UROBILINOGEN,URINE NEGATIVE mg/dL (<2.0)
[2019-10-21 23:02] LABS: URINE AMPHETAMINES SCREEN NEGATIVE; URINE BARBITURATES SCREEN NEGATIVE; URINE BENZODIAZEPINES SCREEN NEGATIVE; URINE COCAINE SCREEN NEGATIVE; URINE MARIJUANA (THC) SCREEN NEGATIVE; URINE METHADONE SCREEN NEGATIVE; URINE PHENCYCLIDINE SCREEN NEGATIVE
--- NOTE | 2019-10-21 23:29 | ER Document Report ---
ED Psych Disorder / Suicide - General Chief Complaint: Psych Problem Stated Complaint: SUICIDAL IDEATION Time Seen by Provider: 10/21/19 22:33 Primary Care Provider: DANIELE ETIENNE MD [Primary Care Provider] - Follow up as needed Mode of Arrival: Medic Information source: Patient, Emergency Med Personnel Notes: 54-year-old male patient presents emergency department chief complaint of alcohol intoxication and suicidal ideations. Patient presents via EMS. EMS rep orts patient told them he has been depressed lately and was feeling suicidal. Patient is acutely intoxicated on arrival and smells strongly of alcohol. Patient endorses to me and the nurse that he has been thinking about killing himself although he cannot give us any specific plan on how he would do this. Patient denies any acute medical complaints today. TRAVEL OUTSIDE OF THE [place] IN LAST 30 DAYS: No - Related Data Allergies/Adverse Reactions: No Known Allergies Allergy (Verified 07/16/19 21:28) Past Medical History - General Information source: Patient - Social History Smoking Status: Current Every Day Smoker Family History: CAD - Father of [place] at age 59, CVA - Past Medical History Cardiac Medical History: Reports: Hx Heart Attack, Hx Hypercholesterolemia, Hx Hypertension Neurological Medical History: Reports: Hx Seizures Renal/ Medical History: Denies: Hx Peritoneal Dialysis GI Medical History: Reports: Hx Gastroesophageal Reflux Disease Past Surgical History: Reports: Hx Abdominal Surgery, Hx Orthopedic Surgery, Other - Abdominal surgery in the past - Immunizations Immunizations up to date: Yes Hx Diphtheria, Pertussis, Tetanus Vaccination: No Hx Pneumococcal Vaccination: 01/03/16 Review of Systems - Review of Systems Constitutional: No symptoms reported EENT: No symptoms reported Cardiovascular: No symptoms reported Respiratory: No symptoms reported Gastrointestinal: No symptoms reported Genitourinary: No symptoms reported Male Genitourinary: No symptoms reported Musculoskeletal: No symptoms reported Skin: No symptoms reported Hematologic/Lymphatic: No symptoms reported Neurological/Psychological: Depression, Homicidal ideation, Other - intoxicated Physical Exam - Vital signs Vitals: Temp 97.5 F 10/21/19 22:27 - Notes Notes: PHYSICAL EXAMINATION: GENERAL: Disheveled, unkempt. HEAD: Atraumatic, normocephalic. EYES: Pupils equal round and reactive to light, extraocular movements intact, sclera anicteric, conjunctiva are normal. ENT: Nares patent, oropharynx clear without exudates. Moist mucous membranes. NECK: Normal range of motion, supple without lymphadenopathy LUNGS: Breath sounds clear to auscultation bilaterally and equal. No wheezes rales or rhonchi. HEART: Regular rate and rhythm without murmurs ABDOMEN: Soft, nontender, nondistended abdomen. No guarding, no rebound. No masses appreciated. Musculoskeletal: Normal range of motion, no pitting or edema. No cyanosis. NEUROLOGICAL: Cranial nerves grossly intact. Slurred speech. Normal sensory, motor exams PSYCH: Acutely intoxicated. SKIN: Warm, Dry, normal turgor, no rashes or lesions noted. Course - Re-evaluation Re-evalutation: Patient appears well, nontoxic. He is acutely intoxicated. He does endorse suicidal ideations, does not give me a specific plan. There is no family member with him. He will be placed on IVC papers as he is acutely intoxicated and complaining of suicidal ideations. He will be evaluated by psych tomorrow. Patient's labs showed hyponatremia. Patient was given a liter of normal saline here in the emergency department. Upon review of records he has had chronic hyponatremia in the past. Handoff given to Mary Jo Cruz NP. Patient will have repeat labs drawn at 11 AM. - Vital Signs Vital signs: Temp Pulse Resp BP Pulse Ox 98.0 F 72 16 99/66 L 93 10/22/19 06:07 10/22/19 06:07 10/22/19 06:07 10/22/19 06:07 10/22/19 06:07 - Laboratory Result Diagrams: 10/21/19 23:25 10/21/19 23:25 Laboratory results interpreted by me: 10/21/19 10/21/19 22:30 23:25 Sodium 126.1 L Chloride 92 L Carbon Dioxide 21 L BUN 4 L Urine Blood SMALL H Salicylates < 1.0 L Acetaminophen < 10 L Serum Alcohol 356 H* - EKG Interpretation by Ne EKG shows normal: Sinus rhythm Rate: Normal Rhythm: NSR - No ST segment elevations or depressions to suggest ischemia. Discharge - Discharge Clinical Impression: ETOH abuse, Suicidal ideations Condition: Stable Disposition: PSYCH HOSP/UNIT Referrals: DANIELE ETIENNE MD [Primary Care Provider] - Follow up as needed
[2019-10-21 23:38] LABS: HEMATOCRIT 43.3 % (37.9-51.0); HEMOGLOBIN 15.1 g/dL (13.5-17.0); MEAN CORPUSCULAR HGB CONC 34.8 g/dL (32.0-36.0); MEAN CORPUSCULAR VOLUME 89 fl (80-97); PLATELET COUNT 329 10^3/uL (150-450); RED BLOOD COUNT 4.85 10^6/uL (4.35-5.55); RED CELL DISTRIBUTION WIDTH 13.6 % (11.5-14.0); WHITE BLOOD COUNT 6.6 10^3/uL (4.0-10.5)
[2019-10-21 23:59] LABS: ALBUMIN 4.5 g/dL (3.5-5.0); ALKALINE PHOSPHATASE 55 U/L (38-126); ANION GAP 13 (5-19); ASPARTATE AMINO TRANSFERASE 30 U/L (17-59); BILIRUBIN,TOTAL 0.3 mg/dL (0.2-1.3); BLOOD UREA NITROGEN 4 mg/dL (7-20); CALCIUM 8.8 mg/dL (8.4-10.2); CARBON DIOXIDE 21 mmol/L (22-30); CHLORIDE 92 mmol/L (98-107); GLUCOSE 96 mg/dL (75-110); POTASSIUM 4.7 mmol/L (3.6-5.0); TOTAL PROTEIN 7.8 g/dL (6.3-8.2)
[2019-10-22 00:02] LABS: ACETAMINOPHEN < 10 ug/mL (10-30); SALICYLATE < 1.0 mg/dL (2.0-20.0)
[2019-10-22 00:07] LABS: ABSOLUTE LYMPHOCYTES# (MANUAL) 1.6 10^3/uL (0.5-4.7); ABSOLUTE MONOCYTES # (MANUAL) 0.2 10^3/uL (0.1-1.4); BAND NEUTROPHILS % (MANUAL) 3 % (3-5); BASOPHILS % (MANUAL) 0 % (0-2); EOSINOPHILS % (MANUAL) 0 % (0-6); LYMPHOCYTES % (MANUAL) 24 % (13-45); MONOCYTES % (MANUAL) 3 % (3-13); SEGMENTED NEUTROPHILS % (MAN) 70 % (42-78); TOTAL CELLS COUNTED 100
[2019-10-22 00:08] LABS: PLATELET COMMENT ADEQUATE; RBC MORPHOLOGY COMMENT NORMO-CYTIC/CHROMIC
[2019-10-22 00:16] LABS: ALCOHOL 356 mg/dL (NONE DETECTED)
[2019-10-22] MEDS ORDERED: NORMAL SALINE 1000 ML 1,000 ML IV ONE ×2 (01:27→08:12)
--- NOTE | 2019-10-22 07:58 | EKG REPORT ---
SEVERITY:- ABNORMAL ECG - SINUS RHYTHM FIRST DEGREE AV BLOCK CONSIDER ANTEROSEPTAL INFARCT : Confirmed by: Lino Lynn 22-Oct-2019 07:57:19
[2019-10-22] MEDS ORDERED: THIAMINE HCL 100 MG, FOLIC ACID 1 MG in NORMAL SALINE 250 ML IV ONE (08:12)
[2019-10-22 12:00] LABS: ANION GAP 10 (5-19); BLOOD UREA NITROGEN 7 mg/dL (7-20); CALCIUM 8.3 mg/dL (8.4-10.2); CARBON DIOXIDE 22 mmol/L (22-30); CHLORIDE 100 mmol/L (98-107); GLUCOSE 118 mg/dL (75-110); POTASSIUM 4.8 mmol/L (3.6-5.0)
--- NOTE | 2019-10-22 12:55 | ER Document Report ---
Doctor's Note Notes: 10/22/19 12:54 PHYSICAL EXAMINATION: GENERAL: Well-appearing and in no acute distress. HEAD: Atraumatic, normocephalic. EYES: sclera anicteric, conjunctiva are normal. ENT: nares patent. Moist mucous membranes. NECK: Normal range of motion, supple without lymphadenopathy LUNGS: CTAB and equal. No wheezes rales or rhonchi. HEART: Regular rate and rhythm without murmurs ABDOMEN: Soft, nontender EXTREMITIES: Normal range of motion, no pitting edema. No cyanosis. NEUROLOGICAL: Cranial nerves grossly intact. Normal speech. PSYCH: Normal mood, normal affect. SKIN: Warm, Dry, normal turgor, no rashes or lesions noted Patient sitting up in chair after having eaten lunch, patient without any complaints. Patient denies any suicidal or homicidal ideation. Patient states he was trying to get his 's attention with his threats because they are trying to work on some issues in the relationship. Patient appears medically stable for discharge or transfer pending behavioral health team disposition. 10/22/19 12:59 Patient's blood pressure 115/68, will hold his morning dose of losartan at this time. 10/22/19 19:14 Behavioral health team does not feel that patient meets IVC criteria at this time. Patient is medically clear for discharge.
[2019-10-22] MEDS ORDERED: LEVETIRACETAM 500 MG TABLET PO ONE (12:57)
[2019-10-22] MEDS ORDERED: TICAGRELOR 90 MG TABLET PO ONE (12:58)
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
[2019-10-22 19:31] VITALS: BP 122/72
[2019-10-22] MEDS ORDERED: METOPROLOL TARTRATE 25 MG TABLET PO SCH (22:00)
[2019-10-22] MEDS ORDERED: AMLODIPINE BESYLATE 5 MG TABLET PO SCH (22:00)
[2019-10-22] MEDS ORDERED: LEVETIRACETAM 500 MG TABLET PO SCH (22:00)
[2019-10-22] MEDS ORDERED: ATORVASTATIN CALCIUM 40 MG TABLET PO SCH (22:00)
[2019-10-22] MEDS ORDERED: TICAGRELOR 90 MG TABLET PO SCH (22:00)
== END 2019-10-22 19:31 | disposition home or self-care (01) ==
LOC: ER 22:18
DX: R45.851 Suicidal ideations (principal); F10.10 Alcohol abuse, uncomplicated; E87.1 Hypo-osmolality and hyponatremia; F32.9 Major depressive disorder, single episode, unspecified; E78.00 Pure hypercholesterolemia, unspecified; I10 Essential (primary) hypertension; I25.2 Old myocardial infarction
CPT/HCPCS: 93005; 99285; 96361; 96365; 36415; 80307 ×4; 85025; 80048; 80053; 81001; 93010; J3490 ×3; J3411; J7030; J7050